=== PATIENT | male | born 1950 | race Caucasian/White ===

== ENCOUNTER → 2017-06-05 11:14 | Outpatient (CLI) | payer BC, SELFPAY ==
[2017-06-05 12:26] LABS: Absolute Lymphocyte Count 1.91 X10^3/ul (0.83-4.51); Absolute Neutrophil Count 4.7 X10^3/uL (2.0-7.7); Basophil# 0.06 X10^3/uL; Basophil% 0.8 % (0-1); Eosinophil# 0.36 X10^3/uL; Eosinophils% 4.8 % (0-5); Hematocrit 42.8 % (40-54); Hemoglobin 14.7 g/dl (13.0-16.5); Lymphocyte # 1.91 X10^3/ul (4.0); Lymphocyte % 25.6 % (19-41); Mean Corp Hgb Conc 34.3 g/gl (32-36); Mean Corpuscular Hgb 32.2 pg (27.0-32.0); Mean Corpuscular Volume 93.9 fL (80-94); Mean Platelet Vol. 10.1 fl (6.2-12.0); Monocyte# 0.46 X10^3/uL; Monocyte% 6.2 % (0-10); Neutrophil # 4.67 X10^3/uL (2.7-7.7); Neutrophil % 62.5 % (47-70); Platelet Count 123 K/mm3 (150-450); RBC Distribution Width SD 44.1 fl (35.1-43.9); Red Blood Count 4.56 M/mm3 (4.6-6.2); White Blood Count 7.5 K/mm3 (4.4-11.0)
[2017-06-05 12:41] LABS: POSITIVE COUNT NO; POSITIVE DIFFERENTIAL NO; POSITIVE MORPHOLOGY NO
[2017-06-05 12:48] LABS: Anion Gap 7 (5-15); BUN 15 mg/dL (7-18); Calcium,Total 8.7 mg/dL (8.5-10.1); Chloride 106 mmol/L (98-107); Creatinine, Serum 0.94 mg/dL (0.70-1.30); EST Glomerular Filtration Rate 86 mL/min (>60); Est Glom Filt Rate - Afr Amer 104 mL/min (>60); Glucose 92 mg/dL (74-106); Potassium 3.9 mmol/L (3.5-5.1); Sodium Level 139 mmol/L (136-145)
== END ==
PROVIDERS: Family Provider Family Medicine; PCP Family Medicine; Visit Provider Family Medicine
DX: Z01.818 Encounter for other preprocedural examination (principal); D69.6 Thrombocytopenia, unspecified; E61.1 Iron deficiency
CPT/HCPCS: 36415; 80048; 85025

== ENCOUNTER → 2017-11-14 07:10 | Outpatient (CLI) | payer BC, SELFPAY ==
[2017-11-14 08:42] LABS: Absolute Lymphocyte Count 1.64 X10^3/ul (0.83-4.51); Absolute Neutrophil Count 3.6 X10^3/uL (2.0-7.7); Basophil# 0.08 X10^3/uL; Basophil% 1.3 % (0-1); Eosinophil# 0.28 X10^3/uL; Eosinophils% 4.4 % (0-5); Hematocrit 45.4 % (40-54); Hemoglobin 15.5 g/dl (13.0-16.5); Lymphocyte # 1.64 X10^3/ul (4.0); Lymphocyte % 25.9 % (19-41); Mean Corp Hgb Conc 34.1 g/gl (32-36); Mean Corpuscular Hgb 31.7 pg (27.0-32.0); Mean Corpuscular Volume 92.8 fL (80-94); Mean Platelet Vol. 10.4 fl (6.2-12.0); Monocyte# 0.67 X10^3/uL; Monocyte% 10.6 % (0-10); Neutrophil # 3.64 X10^3/uL (2.7-7.7); Neutrophil % 57.6 % (47-70); Platelet Count 119 K/mm3 (150-450); RBC Distribution Width CV 13.5 % (11.6-14.6); RBC Distribution Width SD 44.6 fl (35.1-43.9); Red Blood Count 4.89 M/mm3 (4.6-6.2); White Blood Count 6.3 K/mm3 (4.4-11.0)
[2017-11-14 08:45] LABS: POSITIVE COUNT NO; POSITIVE DIFFERENTIAL NO; POSITIVE MORPHOLOGY NO
[2017-11-14 09:09] LABS: Ferritin 88 ng/mL (26-388); Iron 82 ug/dL (65-175)
== END ==
LOC: BFHLAB 07:12 → LAB 08:34
PROVIDERS: Family Provider Family Medicine; PCP Family Medicine; Visit Provider Family Medicine
DX: D69.6 Thrombocytopenia, unspecified (principal)
CPT/HCPCS: 36415; 82728; 83540; 85025

== ENCOUNTER → 2018-06-01 16:46 | Outpatient (CLI) | payer MEDICARE, OTHER, SELFPAY ==
[2018-06-01 18:04] LABS: ALB/GLOB Ratio 1.4 RATIO (0.9-2.4); AST(SGOT) 26 U/L (15-37); Alanine Aminotransfer ALT/SGPT 36 U/L (16-61); Albumin, Serum 4.2 g/dL (3.2-5.0); Alkaline Phosphatase 94 U/L (45-117); Anion Gap 9 (5-15); BUN 14 mg/dL (7-18); BUN/Creat Ratio 16.1 RATIO (10-20); Calcium,Total 8.8 mg/dL (8.5-10.1); Chloride 105 mmol/L (98-107); Creatinine, Serum 0.87 mg/dL (0.70-1.30); EST Glomerular Filtration Rate 93 mL/min (>60); Est Glom Filt Rate - Afr Amer 113 mL/min (>60); Globulin 2.9 g/dL (2.2-4.2); Glucose 98 mg/dL (74-106); Potassium 3.6 mmol/L (3.5-5.1); Protein, Total 7.1 g/dL (6.4-8.2); Sodium Level 138 mmol/L (136-145)
== END ==
PROVIDERS: Family Provider Family Medicine; PCP Family Medicine; Visit Provider Family Medicine
DX: Z79.899 Other long term (current) drug therapy (principal)
CPT/HCPCS: 36415; 80053

== ENCOUNTER 2019-12-07 16:50 | Emergency (ER) | payer MEDICARE, OTHER, SELFPAY ==
[2019-12-07 16:50] VITALS: BP 193/101; PULSE 75; RESP 16; TEMP 36.3; O2SAT 97; BMI 28.6
[2019-12-07 17:31] VITALS: BP 189/111
--- NOTE | 2019-12-07 17:52 | CT_ITS ---
STUDY: CT ABDOMEN AND PELVIS WITHOUT CONTRAST REASON FOR EXAM: Male, 69 years old. SUDDEN ONSET LUQ PAIN,ELEVATED WBC -- BILAT HIP REPLACEMENTS RADIATION DOSAGE (If Supplied By Facility): CTDIvol = ( 18.78 ) mGy, DLP = ( 1165.21 ) mGycm TECHNIQUE: Transaxial images were obtained from the dome of the diaphragm to the symphysis pubis without oral contrast, and without intravenous contrast. Sagittal and coronal images were reconstructed. Individualized dose optimization techniques were used for this CT. COMPARISON: None. FINDINGS: Minor atelectasis within the dependent portion of the lungs.. The heart is normal size. Is minor coronary artery calcification Normal liver. Normal gallbladder and extrahepatic biliary system. Normal spleen. Normal pancreas. Normal bilateral adrenal glands. Tiny nonobstructing right renal calculus. No evidence for renal mass.. 2 tiny nonobstructing left renal calculi. Mild left renal pelvocaliectasis and hydroureter secondary to tiny calculus in the proximal ureter measuring approximately 2 to 3 mm in size associated stranding in the perinephric fat Normal visualized stomach. Normal small intestine. Mild diverticular changes in the distal descending and sigmoid colon without evidence for acute diverticulitis. No evidence for acute appendicitis. Minor atherosclerotic changes of the aorta without evidence for aneurysm. Normal inferior vena cava. Normal retroperitoneum. Normal urinary bladder. Normal abdominal wall. Lumbar spine demonstrates degenerative change. Bilateral hip prostheses are noted CT/Abdomen/Pelvis W IV Cont ONLY IMPRESSION: Bilateral nephrolithiasis. Mild left hydroureteronephrosis secondary to tiny calculus in the proximal ureter measuring approximately 2 to 3 mm in size Mild diverticular disease of the descending and sigmoid colon without evidence for acute diverticulitis Electronically Signed: Hudson Rapp MD at 19:06 EDT , Service support ,
[2019-12-07] MEDS: Ondansetron 4 MG/2 ML Vial IV (18:10)
[2019-12-07] MEDS: Morphine 4 MG/ML Syringe IV (18:10)
[2019-12-07 18:22] LABS: Absolute Lymphocyte Count 1.57 X10^3/uL (0.83-4.51); Basophil# 0.06 X10^3/uL; Basophil% 0.5 % (0-1); Eosinophil# 0.25 X10^3/uL; Eosinophils% 2.1 % (0-5); Hematocrit 43.6 % (40-54); Hemoglobin 15.3 g/dL (13.0-16.5); Lymphocyte # 1.57 X10^3/ul (4.0); Lymphocyte % 13.3 % (19-41); Mean Corp Hgb Conc 35.1 g/dL (32-36); Mean Corpuscular Hgb 33.5 pg (27.0-32.0); Mean Corpuscular Volume 95.4 fL (80-94); Mean Platelet Vol. 9.6 fl (6.2-12.0); Monocyte# 0.96 X10^3/uL; Monocyte% 8.1 % (0-10); NRBC Flagged by Analyzer 0 % (0-5); Neutrophil # 8.95 X10^3/uL (2.7-7.7); Neutrophil % 75.7 % (47-70); Platelet Count 123 K/mm3 (150-450); RBC Distribution Width CV 12.5 % (11.6-14.6); RBC Distribution Width SD 43.4 fl (35.1-43.9); Red Blood Count 4.57 M/mm3 (4.6-6.2); White Blood Count 11.8 K/mm3 (4.4-11.0)
[2019-12-07 18:39] LABS: ALB/GLOB Ratio 1.3 RATIO (0.9-2.4); AST(SGOT) 23 U/L (15-37); Alanine Aminotransfer ALT/SGPT 37 U/L (16-61); Albumin, Serum 4.4 g/dL (3.2-5.0); Alkaline Phosphatase 95 U/L (45-117); Anion Gap 5 (5-15); BUN 26 mg/dL (7-18); BUN/Creat Ratio 18.1 RATIO (10-20); Calcium,Total 9.1 mg/dL (8.5-10.1); Chloride 104 mmol/L (98-107); Creatinine, Serum 1.44 mg/dL (0.70-1.30); EST Glomerular Filtration Rate 52 mL/min (>60); Est Glom Filt Rate - Afr Amer 63 mL/min (>60); Estimated Creatinine Clearance 46.54 ml/min; Globulin 3.4 g/dL (2.2-4.2); Glucose 100 mg/dL (74-106); Lipase 128 U/L (73-393); Potassium 4.1 mmol/L (3.5-5.1); Protein, Total 7.8 g/dL (6.4-8.2); Sodium Level 138 mmol/L (136-145)
[2019-12-07 19:17] LABS: Bacteria 0 SEEN /hpf (None Seen); Mucous, Urine 0 SEEN /hpf (<or=2+); Squamous Epithelial Cells - UA 0 SEEN /hpf (0-5); White Blood Cells 0 SEEN /hpf (0-5)
[2019-12-07 19:24] LABS: Color, Urine Yellow (Yellow); Glucose, Dipstick Normal (Normal); Ketone-Dipstick Negative (Negative); Leukocyte Esterase-Dipstick Negative /ul (Negative); Nitrite-Dipstick Negative (Negative); Occult Blood-Urine 50 /ul (Negative); Protein-Dipstick Negative (Negative); Specific Gravity, Urine 1.005 (1.002-1.030); Urine Bilirubin Dipstick Negative (Negative); Urine Clarity Clear (Clear); Urine Urobilinogen Normal (Normal)
[2019-12-07 19:30] LABS: Red Blood Cells-Urine 0-5 SEEN /hpf (0-5)
--- NOTE | 2019-12-07 19:55 | ED.VISSUMM ---
- ER Visit Summary Date of Service: 12/07/19 Chief Complaint: Abdominal pain History of Present Illness: The patient is a 69 M with left upper abdominal pain that started suddenly today. The pain was severe. Associated with nausea. History of diverticulitis. Physical Examination: Afebrile and vital signs unremarkable except for hypertension. He has no significant tenderness currently. Skin appears normal. Test Results: Labs and urine unremarkable/stable. White count 11.8 and platelets 123, BUN 26, creatinine 1.44. CT shows a 2 to 3 mm stone of the left proximal ureter. Emergency Department Course and Treatment: Patient treated with fluids, morphine, Zofran while awaiting results. I believe the pain is from ureteral colic. Patient may be discharged for outpatient follow-up. Referred to Dr. Knott. Pain meds, nausea meds, Flomax, strain urine. Treatment Plan: As above Disposition: As above Impression: Left ureteral colic This note was generated with [employer] dictation software. It may contain incorrect words, spelling, and punctuation that were not noted in review of the chart prior to signing ED Disposition - Plan for ED Patient: Referrals: Hair Mike MD [Primary Care Provider] -
--- NOTE | 2019-12-07 19:56 | ED.DEP ---
ED Disposition - Plan for ED Patient: Instructions: ED Renal Stone w Colic Prescriptions: Tamsulosin HCl [Flomax] 0.4 mg PO DAILY #7 cap Prescription Printed Oxycodone HCl/Acetaminophen [Percocet 5/325] 1 tab PO Q6H PRN PRN 3 Days #12 tab PRN Reason: Pain Prescription Printed Ondansetron [Zofran Odt] 4 mg PO Q8H PRN PRN #10 tab PRN Reason: Nausea Prescription Printed Referrals: Tu Knott MD [STAFF PHYSICIAN] -
[2019-12-07 20:14] VITALS: BP 159/81
== END 2019-12-07 20:24 | disposition home or self-care (01) ==
LOC: ED 18:09
PROVIDERS: Emergency Provider Emergency Medicine; PCP Family Medicine
DX: N23 Unspecified renal colic (principal)
CPT/HCPCS: 74177; 80053; 81001; 83690; 85025; 96361; 96374; 96375; 99282; J7040; Q9967; A4216; J2405

== ENCOUNTER → 2019-12-12 16:25 | Outpatient (CLI) | payer MEDICARE, OTHER, SELFPAY ==
[2019-12-07 16:50] VITALS: BMI 28.6
[2019-12-12 17:23] LABS: Anion Gap 6 (5-15); BUN 15 mg/dL (7-18); BUN/Creat Ratio 14.6 RATIO (10-20); Calcium,Total 8.9 mg/dL (8.5-10.1); Chloride 106 mmol/L (98-107); Creatinine, Serum 1.03 mg/dL (0.70-1.30); EST Glomerular Filtration Rate 77 mL/min (>60); Est Glom Filt Rate - Afr Amer 93 mL/min (>60); Glucose 106 mg/dL (74-106); Potassium 3.9 mmol/L (3.5-5.1); Sodium Level 139 mmol/L (136-145)
== END ==
PROVIDERS: PCP Family Medicine; Visit Provider Family Medicine
DX: N17.9 Acute kidney failure, unspecified (principal)
CPT/HCPCS: 36415; 80048

== ENCOUNTER 2020-06-14 17:39 | Outpatient (RCR) | payer MEDICARE, OTHER, SELFPAY ==
[2020-06-14] MEDS: COVID-19 VACC, MRNA(PFIZER)/PF 30 MCG/0.3 ML SYRINGE IM (17:56)
[2020-07-05] MEDS: COVID-19 VACC, MRNA(PFIZER)/PF 30 MCG/0.3 ML SYRINGE IM (17:16)
== END 2020-06-14 23:59 ==
LOC: IMMUN 17:39
PROVIDERS: PCP Family Medicine; Referring Provider Family Medicine; Visit Provider Family Medicine
DX: Z23 Encounter for immunization (principal)
CPT/HCPCS: 0001A; 0002A; 91300

== ENCOUNTER → 2021-01-19 06:59 | Outpatient (CLI) | payer MEDICARE, OTHER, SELFPAY ==
[2021-01-19 07:11] LABS: Bacteria 0 SEEN /hpf (None Seen); Mucous, Urine 0 SEEN /hpf (<or=2+); Red Blood Cells-Urine 0 SEEN /hpf (0-5); Squamous Epithelial Cells - UA 0 SEEN /hpf (0-5); White Blood Cells 0 SEEN /hpf (0-5)
[2021-01-19 07:35] LABS: Color, Urine Yellow (Yellow); Glucose, Dipstick Normal (Normal); Ketone-Dipstick Negative (Negative); Leukocyte Esterase-Dipstick Negative /ul (Negative); Nitrite-Dipstick Negative (Negative); Occult Blood-Urine Negative /ul (Negative); Protein-Dipstick Negative (Negative); Urine Bilirubin Dipstick Negative (Negative); Urine Clarity Sl. Cloudy (Clear); Urine Urobilinogen Normal (Normal)
[2021-01-19 07:36] LABS: Absolute Lymphocyte Count 1.55 X10^3/uL (0.83-4.51); Absolute Neutrophil Count 4.4 X10^3/uL (2.0-7.7); Basophil# 0.06 X10^3/uL; Basophil% 0.9 % (0-1); Eosinophil# 0.26 X10^3/uL; Eosinophils% 3.8 % (0-5); Hematocrit 45.5 % (40-54); Hemoglobin 15.7 g/dL (13.0-16.5); Lymphocyte # 1.55 X10^3/ul (0.83-4.51); Lymphocyte % 22.7 % (19-41); Mean Corp Hgb Conc 34.5 g/dL (32-36); Mean Corpuscular Hgb 32.6 pg (27.0-32.0); Mean Corpuscular Volume 94.4 fL (80-94); Mean Platelet Vol. 9.9 fl (6.2-12.0); Monocyte# 0.51 X10^3/uL; Monocyte% 7.5 % (0-10); NRBC Flagged by Analyzer 0 % (0-5); Neutrophil # 4.42 X10^3/uL (2.7-7.7); Neutrophil % 64.8 % (47-70); Platelet Count 126 K/mm3 (150-450); RBC Distribution Width CV 12.4 % (11.6-14.6); RBC Distribution Width SD 42.8 fl (35.1-43.9); Red Blood Count 4.82 M/mm3 (4.6-6.2); White Blood Count 6.8 K/mm3 (4.4-11.0)
[2021-01-19 07:56] LABS: Microalbumin,Random Urine 8.6 mg/L (NO RANGE EST.); Microalbumin:Creatinine Ratio 10.6 mg/g CRE (<30 mg/g CRE)
[2021-01-19 08:01] LABS: ALB/GLOB Ratio 1.2 RATIO (0.9-2.4); AST(SGOT) 22 U/L (15-37); Alanine Aminotransfer ALT/SGPT 35 U/L (16-61); Albumin, Serum 3.8 g/dL (3.2-5.0); Alkaline Phosphatase 91 U/L (45-117); Anion Gap 5 (5-15); BUN 20 mg/dL (7-18); BUN/Creat Ratio 22.5 RATIO (10-20); Calcium,Total 8.8 mg/dL (8.5-10.1); Chloride 108 mmol/L (98-107); Cholesterol 159 mg/dL (200); Creatinine, Serum 0.89 mg/dL (0.70-1.30); EST Glomerular Filtration Rate 90 mL/min (>60); Est Glom Filt Rate - Afr Amer 109 mL/min (>60); Ferritin 148 ng/mL (26-388); Globulin 3.2 g/dL (2.2-4.2); Glucose 97 mg/dL (74-106); High Density Lipoprotein 37 mg/dL; Iron 83 ug/dL (65-175); Iron Binding Capacity,Total 253 ug/dL (250-450); Potassium 4.1 mmol/L (3.5-5.1); Sodium Level 139 mmol/L (136-145); Triglycerides 105 mg/dL; Very Low Density Lipoprotein 21 mg/dL (5-40)
[2021-01-21 08:09] LABS: Vitamin D,25 Hydroxy 71.5 ng/mL
== END ==
PROVIDERS: PCP Internal Medicine; Referring Provider Internal Medicine; Visit Provider Internal Medicine
DX: D50.9 Iron deficiency anemia, unspecified (principal); E78.6 Lipoprotein deficiency; R03.0 Elevated blood-pressure reading, without diagnosis of hypertension; E55.9 Vitamin D deficiency, unspecified
CPT/HCPCS: 36415; 80053; 80061; 81001; 82043; 82306; 82570; 82728; 83540; 83550; 85025

== ENCOUNTER 2021-05-27 18:31 | Outpatient (CLI) | payer MEDICARE, OTHER, SELFPAY ==
--- NOTE | 2021-05-27 18:34 | CT_ITS ---
STUDY: CT RIGHT SHOULDER REASON FOR EXAM: Right glenohumeral osteoarthritis, surgical planning. TECHNIQUE: The patient was scanned in a multi detector CT scanner. High resolution transaxial imaging was performed without the administration of intravenous contrast material. Sagittal and coronal images were reconstructed. Individualized dose optimization techniques were used for this CT. COMPARISON: Radiographs 08/14/2016. FINDINGS: There is joint space narrowing of the anterior glenohumeral articulation (coronal reconstructions 33-35) and mild anterior subluxation of the glenohumeral articulation. Normal glenoid rim, neck and visualized scapula. Normal humeral head, neck and tuberosities. There is narrowing of the acromiohumeral distance (coronal reconstruction 30) measuring 0.4 cm suggestive of rotator cuff pathology. Normal visualized lateral clavicle. There is arthrosis of the acromioclavicular articulation (coronal reconstruction 36). There is a Type I morphology (flat undersurface), with a very mild posterior downsloping orientation. There is atrophy with partial fat replacement of the supraspinatus, infraspinatus and subscapularis muscles (coronal reconstruction 54). There is mild subpleural scarring in the right mid lung (axial images 216-218). CT/Extremity Upper without Contra IMPRESSION: Glenohumeral osteoarthritis. Electronically Signed: Gordy Armas MD at 15:01 EST ,
== END 2021-05-27 23:59 | disposition home or self-care (01) ==
LOC: CT 18:32
PROVIDERS: PCP Internal Medicine; Visit Provider Specialist
DX: M19.211 Secondary osteoarthritis, right shoulder (principal)
CPT/HCPCS: 73200

== ENCOUNTER 2021-07-16 07:23 | Outpatient (CLI) | payer MEDICARE, OTHER, SELFPAY ==
[2021-07-16 08:31] LABS: Hematocrit 39.2 % (40-54); Hemoglobin 13.4 g/dL (13.0-16.5); Mean Corp Hgb Conc 34.2 g/dL (32-36); Mean Corpuscular Hgb 32.8 pg (27.0-32.0); Mean Corpuscular Volume 96.1 fL (80-94); Mean Platelet Vol. 9.2 fl (6.2-12.0); Platelet Count 186 K/mm3 (150-450); RBC Distribution Width CV 12.3 % (11.6-14.6); RBC Distribution Width SD 44.1 fl (35.1-43.9); Red Blood Count 4.08 M/mm3 (4.6-6.2); White Blood Count 8.7 K/mm3 (4.4-11.0)
== END 2021-07-16 23:59 | disposition home or self-care (01) ==
LOC: LAB 07:25
PROVIDERS: PCP Internal Medicine; Referring Provider Physician Assistant Surgical; Visit Provider Physician Assistant Surgical
DX: I10 Essential (primary) hypertension (principal); D69.6 Thrombocytopenia, unspecified
CPT/HCPCS: 36415; 85027

== ENCOUNTER 2021-10-04 11:20 | Outpatient (RCR) | payer MEDICARE, OTHER, SELFPAY ==
[2021-09-26 17:55] LABS: Absolute Lymphocyte Count 2.03 X10^3/uL (0.83-4.51); Absolute Neutrophil Count 3.8 X10^3/uL (2.0-7.7); Basophil# 0.06 X10^3/uL; Basophil% 0.9 % (0-1); Eosinophil# 0.27 X10^3/uL; Hemoglobin 13.5 g/dL (13.0-16.5); Lymphocyte # 2.03 X10^3/ul (0.83-4.51); Lymphocyte % 29.9 % (19-41); Mean Corp Hgb Conc 33.8 g/dL (32-36); Mean Corpuscular Hgb 31.9 pg (27.0-32.0); Mean Corpuscular Volume 94.6 fL (80-94); Monocyte# 0.68 X10^3/uL; NRBC Flagged by Analyzer 0 % (0-5); Neutrophil # 3.75 X10^3/uL (2.7-7.7); Neutrophil % 55.1 % (47-70); Platelet Count 119 K/mm3 (150-450); RBC Distribution Width CV 12.7 % (11.6-14.6); RBC Distribution Width SD 44.1 fl (35.1-43.9); Red Blood Count 4.23 M/mm3 (4.6-6.2); White Blood Count 6.8 K/mm3 (4.4-11.0)
[2021-09-26 18:47] LABS: Differential Indicated SCAN CRITERIA MET; POSITIVE COUNT YES; POSITIVE DIFFERENTIAL NO; POSITIVE MORPHOLOGY NO
[2021-09-26 18:48] LABS: Anisocytosis RARE; Macrocytosis RARE; Platelet Estimate SLT DEC (ADEQ); Red Cell Morphology N CHROM NORMAL (NORM C&C)
[2021-10-04 12:36] LABS: Absolute Lymphocyte Count 1.64 X10^3/uL (0.83-4.51); Absolute Neutrophil Count 4.7 X10^3/uL (2.0-7.7); Basophil# 0.05 X10^3/uL; Basophil% 0.7 % (0-1); Eosinophil# 0.21 X10^3/uL; Hemoglobin 14.1 g/dL (13.0-16.5); Lymphocyte # 1.64 X10^3/ul (0.83-4.51); Lymphocyte % 23.1 % (19-41); Mean Corp Hgb Conc 34.4 g/dL (32-36); Mean Corpuscular Volume 93.2 fL (80-94); Mean Platelet Vol. 10.2 fl (6.2-12.0); Monocyte# 0.51 X10^3/uL; Monocyte% 7.2 % (0-10); NRBC Flagged by Analyzer 0 % (0-5); Neutrophil # 4.68 X10^3/uL (2.7-7.7); Neutrophil % 65.7 % (47-70); Platelet Count 121 K/mm3 (150-450); RBC Distribution Width CV 12.8 % (11.6-14.6); RBC Distribution Width SD 43.8 fl (35.1-43.9); White Blood Count 7.1 K/mm3 (4.4-11.0)
== END 2021-10-10 16:00 | disposition home or self-care (01) ==
LOC: MTLAB 11:20
PROVIDERS: PCP Internal Medicine; Referring Provider Internal Medicine; Visit Provider Internal Medicine
DX: D69.6 Thrombocytopenia, unspecified (principal)
CPT/HCPCS: 36415; 85025

== ENCOUNTER 2021-11-08 16:23 | Outpatient (RCR) | payer MEDICARE, OTHER, SELFPAY ==
[2021-10-11 17:49] LABS: Absolute Lymphocyte Count 1.76 X10^3/uL (0.83-4.51); Absolute Neutrophil Count 4.6 X10^3/uL (2.0-7.7); Basophil# 0.05 X10^3/uL; Basophil% 0.7 % (0-1); Eosinophil# 0.18 X10^3/uL; Eosinophils% 2.5 % (0-5); Hematocrit 43.5 % (40-54); Hemoglobin 14.6 g/dL (13.0-16.5); Lymphocyte # 1.76 X10^3/ul (0.83-4.51); Lymphocyte % 24.1 % (19-41); Mean Corp Hgb Conc 33.6 g/dL (32-36); Mean Corpuscular Hgb 31.9 pg (27.0-32.0); Mean Corpuscular Volume 95.2 fL (80-94); Mean Platelet Vol. 10.6 fl (6.2-12.0); Monocyte# 0.64 X10^3/uL; Monocyte% 8.8 % (0-10); NRBC Flagged by Analyzer 0 % (0-5); Neutrophil # 4.64 X10^3/uL (2.7-7.7); Neutrophil % 63.6 % (47-70); Platelet Count 124 K/mm3 (150-450); RBC Distribution Width SD 45.1 fl (35.1-43.9); Red Blood Count 4.57 M/mm3 (4.6-6.2); White Blood Count 7.3 K/mm3 (4.4-11.0)
[2021-10-18 17:42] LABS: Absolute Lymphocyte Count 1.72 X10^3/uL (0.83-4.51); Absolute Neutrophil Count 4.3 X10^3/uL (2.0-7.7); Basophil# 0.05 X10^3/uL; Basophil% 0.7 % (0-1); Eosinophils% 2.9 % (0-5); Hemoglobin 14.1 g/dL (13.0-16.5); Lymphocyte # 1.72 X10^3/ul (0.83-4.51); Lymphocyte % 24.8 % (19-41); Mean Corp Hgb Conc 33.6 g/dL (32-36); Mean Corpuscular Hgb 32.1 pg (27.0-32.0); Mean Corpuscular Volume 95.7 fL (80-94); Mean Platelet Vol. 10.5 fl (6.2-12.0); Monocyte# 0.64 X10^3/uL; Monocyte% 9.2 % (0-10); NRBC Flagged by Analyzer 0 % (0-5); Neutrophil # 4.29 X10^3/uL (2.7-7.7); Platelet Count 107 K/mm3 (150-450); RBC Distribution Width CV 13.1 % (11.6-14.6); RBC Distribution Width SD 46.7 fl (35.1-43.9); Red Blood Count 4.39 M/mm3 (4.6-6.2); White Blood Count 6.9 K/mm3 (4.4-11.0)
[2021-10-25 18:13] LABS: Absolute Neutrophil Count 4.5 X10^3/uL (2.0-7.7); Basophil# 0.05 X10^3/uL; Basophil% 0.7 % (0-1); Eosinophil# 0.24 X10^3/uL; Eosinophils% 3.2 % (0-5); Hemoglobin 14.1 g/dL (13.0-16.5); Lymphocyte % 26.6 % (19-41); Mean Corp Hgb Conc 33.6 g/dL (32-36); Mean Corpuscular Hgb 31.7 pg (27.0-32.0); Mean Corpuscular Volume 94.4 fL (80-94); Monocyte# 0.69 X10^3/uL; Monocyte% 9.2 % (0-10); NRBC Flagged by Analyzer 0 % (0-5); Neutrophil # 4.53 X10^3/uL (2.7-7.7); Platelet Count 118 K/mm3 (150-450); RBC Distribution Width SD 44.9 fl (35.1-43.9); Red Blood Count 4.45 M/mm3 (4.6-6.2); White Blood Count 7.5 K/mm3 (4.4-11.0)
[2021-11-01 17:59] LABS: Absolute Lymphocyte Count 2.01 X10^3/uL (0.83-4.51); Absolute Neutrophil Count 4.1 X10^3/uL (2.0-7.7); Basophil# 0.05 X10^3/uL; Basophil% 0.7 % (0-1); Eosinophil# 0.25 X10^3/uL; Eosinophils% 3.6 % (0-5); Hematocrit 42.3 % (40-54); Hemoglobin 14.2 g/dL (13.0-16.5); Lymphocyte # 2.01 X10^3/ul (0.83-4.51); Lymphocyte % 28.6 % (19-41); Mean Corp Hgb Conc 33.6 g/dL (32-36); Mean Corpuscular Hgb 32.1 pg (27.0-32.0); Mean Corpuscular Volume 95.5 fL (80-94); Mean Platelet Vol. 10.6 fl (6.2-12.0); Monocyte# 0.64 X10^3/uL; Monocyte% 9.1 % (0-10); NRBC Flagged by Analyzer 0 % (0-5); Neutrophil # 4.07 X10^3/uL (2.7-7.7); Neutrophil % 57.7 % (47-70); Platelet Count 117 K/mm3 (150-450); RBC Distribution Width CV 13.2 % (11.6-14.6); RBC Distribution Width SD 46.5 fl (35.1-43.9); Red Blood Count 4.43 M/mm3 (4.6-6.2)
[2021-11-08 18:14] LABS: Absolute Lymphocyte Count 1.84 X10^3/uL (0.83-4.51); Absolute Neutrophil Count 4.1 X10^3/uL (2.0-7.7); Basophil# 0.06 X10^3/uL; Basophil% 0.9 % (0-1); Eosinophil# 0.21 X10^3/uL; Eosinophils% 3.1 % (0-5); Hematocrit 41.6 % (40-54); Hemoglobin 14.5 g/dL (13.0-16.5); Lymphocyte # 1.84 X10^3/ul (0.83-4.51); Lymphocyte % 26.9 % (19-41); Mean Corp Hgb Conc 34.9 g/dL (32-36); Mean Corpuscular Hgb 32.8 pg (27.0-32.0); Mean Corpuscular Volume 94.1 fL (80-94); Mean Platelet Vol. 10.8 fl (6.2-12.0); Monocyte# 0.56 X10^3/uL; Monocyte% 8.2 % (0-10); NRBC Flagged by Analyzer 0 % (0-5); Neutrophil # 4.14 X10^3/uL (2.7-7.7); Neutrophil % 60.6 % (47-70); Platelet Count 112 K/mm3 (150-450); RBC Distribution Width CV 13.2 % (11.6-14.6); RBC Distribution Width SD 45.1 fl (35.1-43.9); Red Blood Count 4.42 M/mm3 (4.6-6.2); White Blood Count 6.8 K/mm3 (4.4-11.0)
== END 2021-11-10 03:33 | disposition home or self-care (01) ==
LOC: MTLAB 16:23
PROVIDERS: PCP Internal Medicine; Referring Provider Internal Medicine; Visit Provider Internal Medicine
DX: D59.6 Hemoglobinuria due to hemolysis from other external causes (principal)
CPT/HCPCS: 36415; 85025

== ENCOUNTER 2021-11-22 16:08 | Outpatient (RCR) | payer MEDICARE, OTHER, SELFPAY ==
[2021-11-15 17:37] LABS: Absolute Lymphocyte Count 2.04 X10^3/uL (0.83-4.51); Absolute Neutrophil Count 4.8 X10^3/uL (2.0-7.7); Basophil# 0.07 X10^3/uL; Basophil% 0.9 % (0-1); Eosinophil# 0.22 X10^3/uL; Eosinophils% 2.8 % (0-5); Hematocrit 41.9 % (40-54); Hemoglobin 14.8 g/dL (13.0-16.5); Lymphocyte # 2.04 X10^3/ul (0.83-4.51); Lymphocyte % 26.2 % (19-41); Mean Corp Hgb Conc 35.3 g/dL (32-36); Mean Corpuscular Hgb 32.9 pg (27.0-32.0); Mean Corpuscular Volume 93.1 fL (80-94); Monocyte# 0.66 X10^3/uL; Monocyte% 8.5 % (0-10); NRBC Flagged by Analyzer 0 % (0-5); Neutrophil # 4.77 X10^3/uL (2.7-7.7); Neutrophil % 61.3 % (47-70); Platelet Count 115 K/mm3 (150-450); RBC Distribution Width SD 44.1 fl (35.1-43.9); White Blood Count 7.8 K/mm3 (4.4-11.0)
[2021-11-22 17:42] LABS: Absolute Lymphocyte Count 1.85 X10^3/uL (0.83-4.51); Absolute Neutrophil Count 4.1 X10^3/uL (2.0-7.7); Basophil# 0.04 X10^3/uL; Basophil% 0.6 % (0-1); Eosinophil# 0.22 X10^3/uL; Eosinophils% 3.2 % (0-5); Hematocrit 42.2 % (40-54); Hemoglobin 14.1 g/dL (13.0-16.5); Lymphocyte # 1.85 X10^3/ul (0.83-4.51); Lymphocyte % 27.2 % (19-41); Mean Corp Hgb Conc 33.4 g/dL (32-36); Mean Corpuscular Hgb 31.8 pg (27.0-32.0); Mean Corpuscular Volume 95.3 fL (80-94); Mean Platelet Vol. 10.4 fl (6.2-12.0); Monocyte# 0.58 X10^3/uL; Monocyte% 8.5 % (0-10); NRBC Flagged by Analyzer 0 % (0-5); Neutrophil # 4.08 X10^3/uL (2.7-7.7); Neutrophil % 60.2 % (47-70); Platelet Count 108 K/mm3 (150-450); RBC Distribution Width SD 45.6 fl (35.1-43.9); Red Blood Count 4.43 M/mm3 (4.6-6.2); White Blood Count 6.8 K/mm3 (4.4-11.0)
== END 2021-11-22 18:00 | disposition home or self-care (01) ==
LOC: MTLAB 16:08
PROVIDERS: PCP Internal Medicine; Referring Provider Internal Medicine; Visit Provider Internal Medicine
DX: D69.6 Thrombocytopenia, unspecified (principal)
CPT/HCPCS: 36415; 85025

== ENCOUNTER 2022-02-04 06:32 | Outpatient (RCR) | payer MEDICARE, OTHER, SELFPAY ==
[2022-02-04 07:18] LABS: Absolute Lymphocyte Count 1.18 X10^3/uL (0.83-4.51); Basophil# 0.04 X10^3/uL; Basophil% 0.4 % (0-1); Eosinophils% 2.2 % (0-5); Hematocrit 46.3 % (40-54); Hemoglobin 16.1 g/dL (13.0-16.5); Lymphocyte # 1.18 X10^3/ul (0.83-4.51); Mean Corp Hgb Conc 34.8 g/dL (32-36); Mean Corpuscular Hgb 32.9 pg (27.0-32.0); Mean Corpuscular Volume 94.7 fL (80-94); Mean Platelet Vol. 9.8 fl (6.2-12.0); Monocyte# 0.67 X10^3/uL; Monocyte% 7.4 % (0-10); NRBC Flagged by Analyzer 0 % (0-5); Neutrophil # 6.99 X10^3/uL (2.7-7.7); Neutrophil % 76.8 % (47-70); Platelet Count 101 K/mm3 (150-450); RBC Distribution Width CV 12.5 % (11.6-14.6); RBC Distribution Width SD 43.7 fl (35.1-43.9); Red Blood Count 4.89 M/mm3 (4.6-6.2); White Blood Count 9.1 K/mm3 (4.4-11.0)
[2022-02-04 08:04] LABS: ALB/GLOB Ratio 1.3 RATIO (0.9-2.4); AST(SGOT) 19 U/L (15-37); Alanine Aminotransfer ALT/SGPT 34 U/L (16-61); Albumin, Serum 3.9 g/dL (3.2-5.0); Alkaline Phosphatase 93 U/L (45-117); Anion Gap 5 (5-15); BUN 14 mg/dL (7-18); BUN/Creat Ratio 17.2 RATIO (10-20); Calcium,Total 8.9 mg/dL (8.5-10.1); Chloride 105 mmol/L (98-107); Cholesterol 170 mg/dL (200); Creatinine, Serum 0.82 mg/dL (0.70-1.30); EST Glomerular Filtration Rate 100 mL/min (>60); Est Glom Filt Rate - Afr Amer 121 mL/min (>60); Globulin 3.1 g/dL (2.2-4.2); Glucose 95 mg/dL (74-106); High Density Lipoprotein 39 mg/dL; Potassium 4.1 mmol/L (3.5-5.1); Sodium Level 140 mmol/L (136-145); Triglycerides 98 mg/dL; Very Low Density Lipoprotein 20 mg/dL (5-40)
== END 2022-02-04 10:19 | disposition home or self-care (01) ==
LOC: LAB 06:32
PROVIDERS: PCP Internal Medicine; Referring Provider Internal Medicine; Visit Provider Internal Medicine
DX: D69.6 Thrombocytopenia, unspecified (principal); E78.6 Lipoprotein deficiency
CPT/HCPCS: 36415; 80053; 80061; 85025

== ENCOUNTER 2022-03-22 06:36 | Inpatient (IN) | payer MEDICARE, OTHER, SELFPAY ==
[2022-03-22] VITALS (8 sets, daily range): BP systolic 138–178; BP diastolic 75–103; PULSE 78–110; RESP 12–18; TEMP 36.6–37.1; O2SAT 93–98; BMI 26.6; BMI 25.5
--- NOTE | 2022-03-22 07:00 | EKG12_ITS ---
Test Reason : ABD PAIN Blood Pressure : / mmHG Vent. Rate : 070 BPM Atrial Rate : 070 BPM P-R Int : 134 ms QRS Dur : 102 ms QT Int : 378 ms P-R-T Axes : 037 024 023 degrees QTc Int : 408 ms Normal sinus rhythm Normal ECG Confirmed by CITLALY CHOW, ADALGISA ([id number]), editor news DARREL ESPINOZA ([id number]) on 03/25/2022 11:19:14 AM Referred By: Confirmed By:ADALGISA BOUCHER MD
--- NOTE | 2022-03-22 07:01 | ED.VIS.GI ---
HPI <Dr. Kwame Robles MD - Last Filed: 03/22/22 07:36> HPI - GI History of Present Illness Chief Complaint: Abd Pain Detail of Chief Complaint: Epigastric fullness. Informant: patient Abdominal Pain/Flank Pain Onset: Today, Yesterday and Hours Context: Gradual Onset Timing: Continuous Quality: Dull Current Severity: Mild Maximum Severity: Mild Worsened by: Nothing Relieved by: Nothing Nausea/Vomiting/Emesis GI Symptom: Positive for Nausea; Negative for Vomiting Onset: Today and Yesterday Severity: Mild Diarrhea/Melena/Hematochezia GI Symptom: Positive for Diarrhea; Negative for Melena or Hematochezia Onset: Yesterday Stool Quality: Positive for Loose Severity: Mild Associated Symptoms Associated Symptoms: Negative for Dysuria, Frequency, Hematuria or Urgency Narrative Narrative: 71-year-old male history of reflux and prior ITP. He is never had any abdominal surgeries. States that yesterday his last meal was at lunch. He just said he felt like his stomach was full. And that there was pressure. He said that is going on now for about 8 to 10 hours. He did not eat dinner because of it. He did take an omeprazole without any relief. He has had nausea without any vomiting. He had some loose stools. No fever. No weight changes. No melena. He denies any chest pain or shortness of breath. Prior similar symptoms: Yes Recent Illness/Hospitalization: No PFSH <Dr. Kwame Roblse MD - Last Filed: 03/22/22 07:36> [facility] Medical History GERD (gastroesophageal reflux disease) History of ITP Idiopathic thrombocytopenic purpura Home Medications omeprazole 20 mg capsule,delayed release 20 mg PO DAILY 02/05/14 [History Last Taken 02/05/14] iron, carbonyl 45 mg tablet (Feosol) 325 mg PO QWEEK 07/07/16 [History Last Taken Unknown] multivitamin (Multiple Vitamins tablet) 1 tab PO DAILY 07/07/16 [History Last Taken Unknown] ascorbic acid (vitamin C) 500 mg tablet (Vitamin C) 500 mg PO DAILY 08/14/16 [History Last Taken Unknown] cholecalciferol (vitamin D3) 50 mcg (2,000 unit) capsule (Vitamin D3) 2,000 unit PO DAILY 08/14/16 [History Last Taken Unknown] ondansetron 4 mg disintegrating tablet 4 mg PO Q8H PRN PRN Nausea #10 tabs 12/07/19 [Rx Last Taken Unknown] tamsulosin 0.4 mg capsule 0.4 mg PO DAILY #7 caps 12/07/19 [Rx Last Taken Unknown] losartan 50 mg tablet 50 mg PO DAILY 11/11/21 [History Last Taken Unknown] zinc gluconate 30 mg tablet 30 mg PO DAILY 11/11/21 [History Last Taken Unknown] Allergy/AdvReac Type Severity Reaction Status Date / Time prednisone Allergy Rash Verified 03/22/22 06:43 Family History Father Diabetes Mother Hypertension Surgical History History of hip surgery Hx of carpal tunnel repair Hx of foot surgery Hx of shoulder surgery Social History Smoking Status: Never smoker ROS <Dr. Kwame Robles MD - Last Filed: 03/22/22 07:36> ROS ED ROS Narrative Epigastric and abdominal fullness. Nausea. Diarrhea. Review of Systems ROS Unobtainable: Denies due to encephalopathy Constitutional Constitutional ED: Denies chills or fever(s) ENT ENT ED: Denies ear pain Cardiovascular Cardiovascular: Denies chest pain Respiratory/Chest Respiratory/Chest: Denies cough or dyspnea Gastrointestinal Gastrointestinal: Reports abdominal pain, diarrhea and nausea; Denies constipation, melena or vomiting Genitourinary Genitourinary ED: Denies dysuria or hematuria Musculoskeletal Musculoskeletal: Denies arthralgias Integumentary Denies abscess or Abrasions Neurologic Neurologic: Denies headache(s) Psychiatric Psychiatric: Denies anxiety Endocrine Endocrinology: Denies polydipsia Hematologic/Lymphatic Hematologic/Lymphatic: Denies easy bleeding Allergic/Immunologic Allergic/Immunologic ED: Denies mouth swelling or tongue swelling EXAM <Dr. Kwame Robles MD - Last Filed: 03/22/22 07:36> Physical Exam Narrative Exam Narrative: This is 11-year-old male no acute distress. Vital signs stable afebrile. He does not look septic toxic. He is no distress. H EENT exam unremarkable. Moist Riis members. Lungs clear to auscultation. Heart regular rhythm rate about 90 no murmur. Abdomen soft nondistended normal bowel sounds no peritoneal signs. Mild epigastric tenderness. No rebound, guarding or rigidity. No Culp's sign or McBurney's point tenderness. No hernia or masses or signs of obstruction. Patient moving all 4 extremities. Back nontender. Neurologic exam normal. Const Vital Signs: 03/22/22 06:37 03/22/22 06:40 03/22/22 06:40 Temperature 98.6 F 98.6 F Temperature Source Oral Oral Pulse Rate 90 88 Respiratory Rate 18 18 Blood Pressure 160/91 H 160/91 H Blood Pressure Mean 114 114 Pulse Ox 98 95 Oxygen Delivery Method Room Air Room Air 03/22/22 09:11 Temperature Temperature Source Pulse Rate 80 Respiratory Rate 12 Blood Pressure 147/75 H Blood Pressure Mean 99 Pulse Ox 97 Oxygen Delivery Method Room Air Positive well nourished and well developed; Negative for obese, cachectic, contractures or unkempt General Appearance ED: well developed and NAD; Negative for unkempt, cachectic, contractures or pallor Nutritional Appearance: Negative for cachectic or obese HEENT Reports moist mucous membranes; Denies dry mucous membranes normocephalic and atraumatic; Negative for trauma or tenderness Mouth ED: No dry mucous membranes Mouth: No dry mucous membranes Eyes PERRL and EOMs intact bilaterally General Eye ED: Negative for pale conjunctiva or scleral icterus Neck no lymphadenopathy, supple and no JVD General: Negative for tenderness Carotids: Negative for other Resp normal respiratory effort and clear to auscultation bilaterally Effort and Inspection: Negative for respiratory distress or retractions Auscultation: Negative for rales, rhonchi or wheezes Cardio regular rate, regular rhythm, S1 normal heart sound, S2 normal heart sound and no murmurs GI non-distended and no masses; Negative for non-tender GI Narrative: Mild epigastric tenderness. No rebound guarding rigidity. No obstruction. Inspection: Negative for abdominal distention Auscultation: normoactive bowel sounds Palpation: soft and tender Back/Spine no CVA tenderness General Back: Negative for CVA tenderness Cervical Spine: Negative for cervical spine tenderness Thoracic Spine / Upper Back: Negative for thoracic spinal tenderness Lumbar Spine / Lower Back: Negative for lumbar spinal tenderness Coccyx: Negative for other Extremity full ROM General Extremety ED: Negative for edema or tenderness General Extremity: Negative for edema Neuro CN's II-XII intact bilaterally and moves all extremities Sensorium / Orientation: alert, oriented to person, oriented to place and oriented to time; Negative for orientation impaired, confused, lethargic or stuporous Motor Exam: strength 5/5 throughout Psych mental status grossly normal and thought process normal Appearance: Negative for unkempt Attitude: No agitated Mood & Affect: Negative for depressed, anxious or tearful Skin no wounds General Skin Exam: Negative for jaundice or pallor Lesions: no lesions Rashes: no rashes Trauma: Negative for abrasion Nails: Negative for discolored <Dr. Will Dominique MD - Last Filed: 03/22/22 09:22> Physical Exam Const Vital Signs: 03/22/22 06:37 03/22/22 06:40 03/22/22 06:40 Temperature 98.6 F 98.6 F Temperature Source Oral Oral Pulse Rate 90 88 Respiratory Rate 18 18 Blood Pressure 160/91 H 160/91 H Blood Pressure Mean 114 114 Pulse Ox 98 95 Oxygen Delivery Method Room Air Room Air 03/22/22 09:11 Temperature Temperature Source Pulse Rate 80 Respiratory Rate 12 Blood Pressure 147/75 H Blood Pressure Mean 99 Pulse Ox 97 Oxygen Delivery Method Room Air MDM <Dr. Kwame Robles MD - Last Filed: 03/22/22 07:36> MDM MDM Narrative Medical decision making narrative: 71-year-old male with epigastric fullness. Clinically I think this is his reflux. Differential would include gastritis, reflux, pancreatitis, gallbladder disease etc. He will be treated with Zofran for nausea. Protonix for reflux along with GI cocktail. Screening labs can be obtained. At this time I do not think needs any imaging. He will be turned over to the morning physician who will follow up his labs and make final disposition. Lab Data Attestation: I reviewed the patient's lab results. Lab results narrative: CBC shows a white count 11.1. H&H is 16.9 and 50. Platelets are slightly low at 120,000 and he has a history of ITP. Patient be turned over to the morning physician to check his labs, EKG and re-evaluate the patient. Electrolytes unremarkable. Gap of 5. BUN 19 creatinine of 1. Glucose 148. Liver enzymes normal. Lipase normal. Labs: Laboratory Results - last 24 hr 03/22/22 03/22/22 06:53 06:53 WBC 11.1 H RBC 5.25 Hgb 16.9 H Hct 50.0 MCV 95.2 H MCH 32.2 H MCHC 33.8 RDW Std Deviation 44.5 H RDW Coeff of Yoel 12.6 Plt Count 120 L MPV 10.4 Immature Gran % (Auto) 0.400 Neut % (Auto) 86.7 H Lymph % (Auto) 8.9 L Wirt % (Auto) 3.6 Eos % (Auto) 0.2 Baso % (Auto) 0.2 Absolute Neuts (auto) 9.6 H Absolute Lymphs (auto) 0.99 Nucleated RBC % 0 Sodium 139 Potassium 4.0 Chloride 107 Carbon Dioxide 27.0 Anion Gap 5 BUN 19 H Creatinine 1.00 Estim Creat Clear Calc 69.72 Est GFR (MDRD) Af Amer 96 Est GFR (MDRD) Non-Af 79 BUN/Creatinine Ratio 19.1 Glucose 148 H Calcium 9.5 Total Bilirubin 0.80 AST 17 ALT 33 Alkaline Phosphatase 99 Total Protein 7.6 Albumin 4.1 Globulin 3.5 Albumin/Globulin Ratio 1.2 Lipase 95 <Dr. Will Dominique MD - Last Filed: 03/22/22 09:22> [facility] MDM Narrative Medical decision making narrative: 71-year-old male with epigastric fullness. Clinically I think this is his reflux. Differential would include gastritis, reflux, pancreatitis, gallbladder disease etc. He will be treated with Zofran for nausea. Protonix for reflux along with GI cocktail. Screening labs can be obtained. At this time I do not think needs any imaging. He will be turned over to the morning physician who will follow up his labs and make final disposition. Patient's EKG showed no acute process. CBC showed mild elevation of his white count and hemoglobin. Platelets were low but this is chronic for him. Electrolytes are overall normal. Kidney function is normal. Glucose was up at 148 but I do not think this is the cause of his symptoms. Liver function test and lipase showed no acute process. Patient was feeling a little bit better. We tried p.o. challenge but he vomited the water. I am getting him some more meds. We are going to do a scan of his abdomen. He does state that he feels very distended. Even though he has had no abdominal surgery in the past, I want a make sure there is no acute process, perforation obstruction etc. Lab Data Labs: Laboratory Results - last 24 hr 03/22/22 03/22/22 06:53 06:53 WBC 11.1 H RBC 5.25 Hgb 16.9 H Hct 50.0 MCV 95.2 H MCH 32.2 H MCHC 33.8 RDW Std Deviation 44.5 H RDW Coeff of Yoel 12.6 Plt Count 120 L MPV 10.4 Immature Gran % (Auto) 0.400 Neut % (Auto) 86.7 H Lymph % (Auto) 8.9 L Wirt % (Auto) 3.6 Eos % (Auto) 0.2 Baso % (Auto) 0.2 Absolute Neuts (auto) 9.6 H Absolute Lymphs (auto) 0.99 Nucleated RBC % 0 Sodium 139 Potassium 4.0 Chloride 107 Carbon Dioxide 27.0 Anion Gap 5 BUN 19 H Creatinine 1.00 Estim Creat Clear Calc 69.72 Est GFR (MDRD) Af Amer 96 Est GFR (MDRD) Non-Af 79 BUN/Creatinine Ratio 19.1 Glucose 148 H Calcium 9.5 Total Bilirubin 0.80 AST 17 ALT 33 Alkaline Phosphatase 99 Total Protein 7.6 Albumin 4.1 Globulin 3.5 Albumin/Globulin Ratio 1.2 Lipase 95 EKG Initial EKG: Comments: EKG done for epigastric pain read by me shows a normal sinus rhythm with overall rate of 70. No ectopy. No acute ST elevation depression consistent with infarct or ischemia. [place] interval, QRS duration and QTc normal. This is overall similar to 1 done from June 2013. Discharge Plan Triage Chief Complaint: Abd Pain ED Provider: Kwame Robles Dx/Rx/DC Orders Clinical Impression: Abdominal pain Prescriptions: No Action losartan 50 mg tablet 50 mg PO DAILY zinc gluconate 30 mg tablet 30 mg PO DAILY omeprazole 20 MG capsule 20 mg PO DAILY multivitamin [Multiple Vitamins] 1 EACH tablet 1 tab PO DAILY iron, carbonyl [Feosol] 45 MG capsule 325 mg PO QWEEK ascorbic acid (vitamin C) [Vitamin C] 500 MG tablet 500 mg PO DAILY cholecalciferol (vitamin D3) [Vitamin D3] 2,000 UNIT capsule 2,000 unit PO DAILY tamsulosin 0.4 MG capsule 0.4 mg PO DAILY Qty: 7 0RF ondansetron 4 MG tablet 4 mg PO Q8H PRN PRN (Reason: Nausea) Qty: 10 0RF Primary Care Provider: Korin Velázquez Referrals: Korin Velázquez DO [Primary Care Provider] -
[2022-03-22 07:10] LABS: Absolute Lymphocyte Count 0.99 X10^3/uL (0.83-4.51); Absolute Neutrophil Count 9.6 X10^3/uL (2.0-7.7); Basophil# 0.02 X10^3/uL; Basophil% 0.2 % (0-1); Eosinophil# 0.02 X10^3/uL; Eosinophils% 0.2 % (0-5); Hemoglobin 16.9 g/dL (13.0-16.5); Lymphocyte # 0.99 X10^3/ul (0.83-4.51); Lymphocyte % 8.9 % (19-41); Mean Corp Hgb Conc 33.8 g/dL (32-36); Mean Corpuscular Hgb 32.2 pg (27.0-32.0); Mean Corpuscular Volume 95.2 fL (80-94); Mean Platelet Vol. 10.4 fl (6.2-12.0); Monocyte% 3.6 % (0-10); NRBC Flagged by Analyzer 0 % (0-5); Neutrophil # 9.62 X10^3/uL (2.7-7.7); Neutrophil % 86.7 % (47-70); Platelet Count 120 K/mm3 (150-450); RBC Distribution Width CV 12.6 % (11.6-14.6); RBC Distribution Width SD 44.5 fl (35.1-43.9); Red Blood Count 5.25 M/mm3 (4.6-6.2); White Blood Count 11.1 K/mm3 (4.4-11.0)
[2022-03-22] MEDS: Ondansetron 4 MG/2 ML Vial IV (07:23)
[2022-03-22] MEDS: Pantoprazole Sodium 40 MG Tablet PO (07:23)
[2022-03-22 07:24] LABS: ALB/GLOB Ratio 1.2 RATIO (0.9-2.4); AST(SGOT) 17 U/L (15-37); Alanine Aminotransfer ALT/SGPT 33 U/L (16-61); Albumin, Serum 4.1 g/dL (3.2-5.0); Alkaline Phosphatase 99 U/L (45-117); Anion Gap 5 (5-15); BUN 19 mg/dL (7-18); BUN/Creat Ratio 19.1 RATIO (10-20); Calcium,Total 9.5 mg/dL (8.5-10.1); Chloride 107 mmol/L (98-107); EST Glomerular Filtration Rate 79 mL/min (>60); Est Glom Filt Rate - Afr Amer 96 mL/min (>60); Estimated Creatinine Clearance 69.72 ml/min; Globulin 3.5 g/dL (2.2-4.2); Glucose 148 mg/dL (74-106); Lipase 95 U/L (73-393); Protein, Total 7.6 g/dL (6.4-8.2); Sodium Level 139 mmol/L (136-145)
[2022-03-22] MEDS: Mag Hydrox/Al Hydrox/Simeth 30 ML UDC PO (07:24)
--- NOTE | 2022-03-22 09:18 | CT_ITS ---
HISTORY: pain, vomiting. TECHNIQUE: Helically acquired images were obtained of the abdomen and pelvis after the intravenous administration of 100mL Isovue-300. A radiation dose optimization technique was used for this scan. 436 images. COMPARISON: 12/07/2019. FINDINGS: LOWER CHEST: Lung bases clear. BOWEL: Multiple mildly dilated and fluid-filled small bowel loops and transition point in the left lower quadrant. Mild small bowel wall thickening proximal to the transition point. In the left lower quadrant Appendix nondilated. Colonic diverticulosis without focal inflammatory change observed. PERITONEUM: Trace free fluid in the pelvis. LIVER/SPLEEN/PANCREAS: No enhancing mass. Homogeneous and nonenlarged. GALLBLADDER/BILIARY TREE: Gallbladder present. KIDNEYS: Bilateral cysts measuring up to 1.4 cm on the left. 2-3 mm left renal calculi. No hydronephrosis. ADRENAL GLANDS: Unremarkable. VESSELS: No abdominal aortic aneurysm. Calcified plaque of the major branches of the abdominal aorta. PELVIC ORGANS: Unchanged appearance. ABDOMINAL WALL: Chronic left psoas muscle atrophy. BONES: Bilateral hip arthroplasties in place. Degenerative change. CT/Abdomen/Pelvis W IV Cont ONLY IMPRESSION: Small bowel obstruction with mildly dilated small bowel loops and transition point in the left lower quadrant. Mild small bowel wall thickening and trace ascites. Colonic diverticulosis without acute diverticulitis. Small nonobstructing right renal calculi. Small renal cysts. Electronically Signed: Tammie Ruiz MD at 9:58 EST ,
[2022-03-22] MEDS: proMETHazine 25 MG/ML Syringe 12.5 MG IM (09:23)
[2022-03-22] MEDS: Oxymetazoline 0.05% 1 SPRAY SPRAY.BTL 2 SPRAY NASAL (11:40)
[2022-03-22] MEDS: Lidocaine Jelly 2% 20 ML Syringe (URO-JET) 1 APPLIC TOPICAL (11:43)
--- NOTE | 2022-03-22 11:45 | RAD_ITS ---
HISTORY: NG tube placement -- KUB with both diaphragms for NG/OG Verification. TECHNIQUE: XR Abdomen 1 View. COMPARISON: CT earlier same day. FINDINGS: BOWEL GAS PATTERN: Nasogastric tube tip in the left upper quadrant. Multiple dilated small bowel loops again seen. FREE AIR: No gross free air seen on upright view. RAD/Abdomen Single View (Portable) IMPRESSION: Satisfactory appearance of nasogastric tube. Persistent small bowel obstruction. Electronically Signed: Tammie Ruiz MD at 12:06 EST ,
[2022-03-22] MEDS: Lactated Ringers 1,000 ML 125 ML IV ×2 (11:48→18:14)
--- NOTE | 2022-03-22 13:48 | HP.PCM.SX_ITS ---
HPI - General General Date of Admission: 03/22/22 Date of Service: 03/22/22 Chief Complaint: abdominal pain HPI Narrative WILDA SEGUNDO, is a 71 M who presents with abdominal pain. He states that this present episode began Thursday morning. He last noted a bowel movement this morning. He also had a bowel movement yesterday. He passed a small amount of flatus yesterday. He denies abdominal pain at present. He denies feeling bloated at this time. He denies fevers. His major complaint at this time is dry mouth. He has had similar episodes in the past, he states that he get this about once a year and this has been going on for about five years. These episodes would resolve within a day. No previous hospitalizations. He states that this last episode was more intense and thus presented to [place] [facility]. CT scan findings of small bowel obstruction with area of thickened small bowel wall. Patient denies antecedent symptoms of diarrhea/constipation/blood in stools He last had a colonoscopy in the past 1-2 years. He denies previous abdominal surgeries. He has had two hip surgeries, shoulder surgery and foot surgery. [facility] Medical History Diverticulitis GERD (gastroesophageal reflux disease) History of ITP Hypertension Idiopathic thrombocytopenic purpura Kidney stones Osteoarthritis Partial small bowel obstruction Home Medications omeprazole 20 mg capsule,delayed release 20 mg PO DAILY 02/05/14 [History Last Taken 02/05/14] iron, carbonyl 45 mg tablet (Feosol) 325 mg PO QWEEK 07/07/16 [History Last Taken Unknown] multivitamin (Multiple Vitamins tablet) 1 tab PO DAILY 07/07/16 [History Last Taken Unknown] ascorbic acid (vitamin C) 500 mg tablet (Vitamin C) 500 mg PO DAILY 08/14/16 [History Last Taken Unknown] cholecalciferol (vitamin D3) 50 mcg (2,000 unit) capsule (Vitamin D3) 2,000 unit PO DAILY 08/14/16 [History Last Taken Unknown] ondansetron 4 mg disintegrating tablet 4 mg PO Q8H PRN PRN Nausea #10 tabs 12/07/19 [Rx Last Taken Unknown] tamsulosin 0.4 mg capsule 0.4 mg PO DAILY #7 caps 12/07/19 [Rx Last Taken Unknown] losartan 50 mg tablet 50 mg PO DAILY 11/11/21 [History Last Taken Unknown] zinc gluconate 30 mg tablet 30 mg PO DAILY 11/11/21 [History Last Taken Unknown] Allergy/AdvReac Type Severity Reaction Status Date / Time prednisone Allergy Rash Verified 03/22/22 06:43 Family History Father Diabetes Mother Hypertension Surgical History History of hip surgery Hx of carpal tunnel repair Hx of foot surgery Hx of shoulder surgery Social History Smoking Status: Never smoker ROS Constitutional Constitutional: Denies chills, fever(s) or weight loss Eyes Eyes: Denies change in vision Cardiovascular Cardiovascular: Denies chest pain at rest Respiratory/Chest Respiratory/Chest: Denies dyspnea or shortness of breath at rest Gastrointestinal Gastrointestinal: Denies abdominal pain Genitourinary Genitourinary: Denies dysuria or hematuria Musculoskeletal Musculoskeletal: Denies abnormal gait Integumentary Integumentary: Denies jaundice Neurologic Neurologic: Denies dizziness or focal weakness Vital Signs Vital Signs Vital Signs: 03/22/22 06:37 03/22/22 06:40 03/22/22 06:40 Temperature 98.6 F 98.6 F Temperature Source Oral Oral Pulse Rate 90 88 Respiratory Rate 18 18 Blood Pressure 160/91 H 160/91 H Blood Pressure Mean 114 114 Blood Pressure Source Blood Pressure Position Blood Pressure Location Pulse Ox 98 95 Oxygen Delivery Method Room Air Room Air 03/22/22 09:11 03/22/22 11:53 03/22/22 12:15 Temperature 98 F 98.0 F Temperature Source Temporal Oral Pulse Rate 80 78 96 Respiratory Rate 12 16 16 Blood Pressure 147/75 H 138/78 H 176/101 H Blood Pressure Mean 99 98 126 Blood Pressure Source Monitor Blood Pressure Position Semi-Fowlers Blood Pressure Location Left Arm Pulse Ox 97 97 96 Oxygen Delivery Method Room Air Room Air Room Air Weight Weight: 78.6 kg Body Mass Index (BMI) 25.5 Physical Exam Const oriented x3 and no apparent distress Resp normal respiratory effort Cardio regular rate GI GI Narrative: abdomen is protuberant, non tender, benign Extremity no clubbing, cyanosis or edema Results Medical Records Data Attestation: I reviewed the patient's medical records Lab / Micro Data Attestation: I reviewed the patient's lab results. Result Diagrams: 03/22/22 06:53 03/22/22 06:53 Labs: Laboratory Results - last 24 hr 03/22/22 06:53: WBC 11.1 H, RBC 5.25, Hgb 16.9 H, Hct 50.0, MCV 95.2 H, MCH 32.2 H, MCHC 33.8, RDW Std Deviation 44.5 H, RDW Coeff of Yoel 12.6, Plt Count 120 L, MPV 10.4, Immature Gran % (Auto) 0.400, Neut % (Auto) 86.7 H, Lymph % (Auto) 8.9 L, [place] % (Auto) 3.6, Eos % (Auto) 0.2, Baso % (Auto) 0.2, Absolute Neuts (auto) 9.6 H, Absolute Lymphs (auto) 0.99, Nucleated RBC % 0 03/22/22 06:53: Sodium 139, Potassium 4.0, Chloride 107, Carbon Dioxide 27.0, Anion Gap 5, BUN 19 H, Creatinine 1.00, Estim Creat Clear Calc 69.72, Est GFR (MDRD) Af Amer 96, Est GFR (MDRD) Non-Af 79, BUN/Creatinine Ratio 19.1, Glucose 148 H, Calcium 9.5, Total Bilirubin 0.80, AST 17, ALT 33, Alkaline Phosphatase 99, Total Protein 7.6, Albumin 4.1, Globulin 3.5, Albumin/Globulin Ratio 1.2, Lipase 95 Radiology Impression Abdomen/Pelvis CT 03/22/22 09:18 IMPRESSION: Small bowel obstruction with mildly dilated small bowel loops and transition point in the left lower quadrant. Mild small bowel wall thickening and trace ascites. Colonic diverticulosis without acute diverticulitis. Small nonobstructing right renal calculi. Small renal cysts. Electronically Signed: Tammie Ruiz MD at 9:58 EST , KUB X-Ray 03/22/22 11:45 IMPRESSION: Satisfactory appearance of nasogastric tube. Persistent small bowel obstruction. Electronically Signed: Tammie Ruiz MD at 12:06 EST , Assessment & Plan Assessment/Plan (1) Partial small bowel obstruction: PLAN: see below PLAN: Plan will order CT scan with gastrogaffin contrast - can be placed via NG tube patient may have ice chips will need outpatient small bowel FT, if this episode resolved, to determine etiology of repeated pSBO No inflammatory bowel disease noted in family
--- NOTE | 2022-03-22 13:50 | CT_ITS ---
STUDY: CT Abdomen And Pelvis W/O Contrast Injection 03/22/2022 4:53 PM REASON FOR EXAM: Male, 71 years old. nausea/vomiting, hx hypertension. PAIN small bowel obstruction, localize -- localize TECHNIQUE: Transaxial images were obtained with oral contrast, and without Oral Gastrografin intravenous contrast. Individualized dose optimization techniques were used for this CT. COMPARISON: study done earlier. FINDINGS: The visualized lung bases are unremarkable. The visualized portions of the heart are within normal limits. Unremarkable liver. Unremarkable gallbladder and extrahepatic biliary system. Unremarkable spleen. Unremarkable pancreas. Unremarkable bilateral adrenal glands. No acute findings of the right kidney. No acute findings of the left kidney. Unremarkable visualized stomach. There are dilated loops of the small intestine with a non-distended colon consistent with a small bowel obstruction. There are multiple colonic diverticula consistent with diverticulosis. There is non-visualization of the appendix. Trace free fluid in the pelvis. There are calcifications of the abdominal aorta. This is consistent for atherosclerotic disease. There is no abdominal aortic aneurysm. Unremarkable inferior vena cava. Subcentimeter mesenteric lymph nodes. Unremarkable urinary bladder. Total bilateral hip arthroplasty. Unremarkable abdominal wall. There are diffuse degenerative changes of the visualized lumbar spine. CT/Abdomen/Pel W ORAL Cont Only IMPRESSION: (NOT LISTED IN ORDER OF SIGNIFICANCE) There is a small bowel obstruction. The transition point is not clearly seen. Trace free fluid in the pelvis. Other findings as above. Electronically Signed: Rick Reina MD at 16:59 EST ,
[2022-03-22] MEDS: hydrALAZINE 20 MG/ML Vial 5 MG IV (14:20)
[2022-03-22] MEDS: BENZOCAINE/MENTHOL 1 LOZENGE MUCOUS MEM (16:58)
--- NOTE | 2022-03-22 20:00 | RAD_ITS ---
EXAM: XR ABDOMEN, 2 VIEWS CLINICAL INDICATION: small bowel obstruction TECHNIQUE: Frontal view of the abdomen/pelvis with upright view of the abdomen. This report was created using [employer] report generation technology. COMPARISON: ct of the same day FINDINGS: LOWER THORAX: No acute pathology. INTRAPERITONEAL SPACE: No free air. GASTROINTESTINAL TRACT: There is a small bowel obstruction which appears worse. ORGANS: Unremarkable as visualized. No organomegaly. No abnormal calcifications. BONES/JOINTS: Degenerative findings in the lumbar spine. Total bilateral hip arthroplasty. SOFT TISSUES: No acute pathology. TUBES, LINES AND DEVICES: There is a feeding tube/ nasogastric tube noted. The tip is in the region of the stomach. RAD/Abd Inc Decub and/or Erect IMPRESSION: 1. There is a feeding tube/ nasogastric tube noted. The tip is in the region of the stomach. 2. There is a small bowel obstruction which appears worse. Electronically Signed: Rick Reina MD at 20:23 EST ,
[2022-03-23 01:45] VITALS: BP 156/85; PULSE 93; RESP 16; TEMP 36.8; O2SAT 94
[2022-03-23] MEDS: Lactated Ringers 1,000 ML 125 ML IV ×2 (01:51→09:57)
[2022-03-23 05:41] VITALS: BP 156/97; PULSE 90; RESP 18; TEMP 36.8; O2SAT 95
[2022-03-23 07:00] LABS: Anion Gap 5 (5-15); BUN 22 mg/dL (7-18); BUN/Creat Ratio 24.3 RATIO (10-20); Calcium,Total 8.5 mg/dL (8.5-10.1); Chloride 109 mmol/L (98-107); EST Glomerular Filtration Rate 88 mL/min (>60); Est Glom Filt Rate - Afr Amer 107 mL/min (>60); Estimated Creatinine Clearance 77.46 ml/min; Glucose 101 mg/dL (74-106); Potassium 3.7 mmol/L (3.5-5.1); Sodium Level 142 mmol/L (136-145)
[2022-03-23 09:05] VITALS: BP 163/99; PULSE 91; RESP 16; TEMP 36.8; O2SAT 96
--- NOTE | 2022-03-23 10:43 | PCM.PN.SRG ---
Subjective Subjective patient denies abdominal pain passing flatus doesn't really feel hungry Objective Data Objective Data Vital Signs: Vital Signs Temp Pulse Resp BP Pulse Ox O2 Del Method 98.3 F 91 16 163/99 H 96 Room Air 03/23/22 09:05 03/23/22 09:05 03/23/22 09:05 03/23/22 09:05 03/23/22 09:05 03/23/22 09:22 Oxygen Delivery Method Room Air Weight: 78.6 kg Body Mass Index (BMI) 25.5 Intake & Output: Intake and Output for Last 24 Hours 03/21/22 03/22/22 03/23/22 23:59 23:59 23:59 Intake Total 1327.17 / 1327.17 1962.08 / 1962.08 Output Total 1100 / 1100 600 / 600 Balance 227.17 / 227.17 1362.08 / 1362.08 Lab / Micro Data Result Diagrams: 03/22/22 06:53 03/23/22 05:35 Labs: Laboratory Results - last 24 hr 03/23/22 05:35: Sodium 142, Potassium 3.7, Chloride 109 H, Carbon Dioxide 28.0, Anion Gap 5, BUN 22 H, Creatinine 0.90, Estim Creat Clear Calc 77.46, Est GFR (MDRD) Af Amer 107, Est GFR (MDRD) Non-Af 88, BUN/Creatinine Ratio 24.3 H, Glucose 101, Calcium 8.5 Radiography Diagnostic Testing: Radiology Impression KUB X-Ray 03/22/22 11:45 IMPRESSION: Satisfactory appearance of nasogastric tube. Persistent small bowel obstruction. Electronically Signed: Tammie Ruiz MD at 12:06 EST , Abdomen CT 03/22/22 13:50 IMPRESSION: (NOT LISTED IN ORDER OF SIGNIFICANCE) There is a small bowel obstruction. The transition point is not clearly seen. Trace free fluid in the pelvis. Other findings as above. Electronically Signed: Rick Reina MD at 16:59 EST , Abdomen X-Ray 03/22/22 20:00 IMPRESSION: 1. There is a feeding tube/ nasogastric tube noted. The tip is in the region of the stomach. 2. There is a small bowel obstruction which appears worse. Electronically Signed: Rick Reina MD at 20:23 EST , Physical Exam Const alert and oriented x3 General Appearance: cooperative HEENT head/scalp atraumatic Eyes no scleral icterus Neck supple Resp normal respiratory effort Effort and Inspection: able to speak in complete sentences Cardio regular rate GI GI Narrative: abdomen is soft and protuberant and benign Assessment & Plan Assessment/Plan (1) Partial small bowel obstruction: PLAN: see below PLAN: Plan will trial clamp NG tube will start on clear liquids if tolerates above, will then d/c NG tube and patient can be discharged on clear liquid diet to advance slowly at home, patient is amenable to this he should be on a low residue diet/low fiber diet for a couple of weeks. He should follow up with me in the clinic for workup of etiology of SBO
[2022-03-23 13:33] VITALS: BP 149/85; PULSE 92; RESP 16; TEMP 36.9; O2SAT 94
--- NOTE | 2022-03-23 15:01 | DCINST_ITS ---
Discharge Instructions Follow Up Care Test Results: Test results from this visit will be discussed in further detail at your follow- up appointment, if applicable. Discharge Plan Admission Admit Date/Time: 03/22/22 11:16 Attending Provider: Hedy Sloan Primary Care Provider: Korni Velázquez Instructions Additional Instructions / Restrictions: Follow up with Dr. Sloan in 1-2 weeks Please call for an appointment, thank you Low residue/low fiber diet for at least two weeks Drink plenty of free water - at least 8-10 glasses per day Avoid carbonated and caffeinated beverages for a couple of weeks Discharge Orders/Prescriptions Prescriptions: No Action zinc gluconate 30 mg tablet 30 mg PO DAILY omeprazole 20 MG capsule 20 mg PO DAILY multivitamin [Multiple Vitamins] 1 EACH tablet 1 tab PO DAILY iron, carbonyl [Feosol] 45 MG capsule 325 mg PO WE ascorbic acid (vitamin C) [Vitamin C] 500 MG tablet 500 mg PO DAILY cholecalciferol (vitamin D3) [Vitamin D3] 2,000 UNIT capsule 2,000 unit PO DAILY Referrals / Follow Up: Korin Velázquez DO [Primary Care Provider] - Disposition Discharge Orders: Discharge Patient (Routine); Ordered 03/23/22 Ordered By: Dr. Hedy Sloan
== END 2022-03-23 15:13 | disposition home or self-care (01) | DRG 390 ==
LOC: ED 09:23 → PCU 11:47
PROVIDERS: Emergency Medicine; Admitting Provider Surgery; Emergency Provider Emergency Medicine; PCP Internal Medicine; Visit Provider Surgery
DX: K56.600 Partial intestinal obstruction, unspecified as to cause (principal); I10 Essential (primary) hypertension; K21.9 Gastro-esophageal reflux disease without esophagitis; Z87.19 Personal history of other diseases of the digestive system; Z86.19 Personal history of other infectious and parasitic diseases; Z87.442 Personal history of urinary calculi
CPT/HCPCS: 36415; 74018; 74019; 74176; 74177; 80048; 80053; 83690; 85025; 93005; 99285; J7120; Q9967; A4216; J2405

== ENCOUNTER → 2022-04-18 | Outpatient (CLI) | payer MEDICARE, OTHER, SELFPAY ==
--- NOTE | 2022-04-18 07:55 | RAD_ITS ---
CLINICAL HISTORY: Male, 71 years old. History of small bowel obstruction. PROCEDURE: Small bowel follow-through examination. FLUOROSCOPY TIME (if supplied): (54 seconds.) minutes/seconds. 19 images were obtained. TECHNIQUE: (All elements of maximal sterile barrier technique followed, including US elements as applicable) The patient ingested barium. The small bowel follow-through examination was performed. No evidence of a bowel obstruction. Contrast is seen within the right hemicolon at 30 minutes. Terminal ileum is unremarkable. Incidental note is made of a 1.6 cm diverticulum in the third portion of the duodenum. RAD/Small Bowel Series Only IMPRESSION: No evidence of bowel obstruction. 1.6 cm diverticulum in the third portion of the duodenum. Electronically Signed: Edison Trevizo MD at 13:10 EST ,
== END | disposition home or self-care (01) ==
LOC: RAD 07:43
PROVIDERS: PCP Internal Medicine; Visit Provider Surgery
DX: K56.609 Unspecified intestinal obstruction, unspecified as to partial versus complete obstruction (principal)
CPT/HCPCS: 74250

== ENCOUNTER → 2022-08-16 | Outpatient (CLI) | payer MEDICARE, OTHER, SELFPAY ==
[2022-08-16 07:25] LABS: Bacteria 0 SEEN /hpf (None Seen); Mucous, Urine 0 SEEN /hpf (<or=2+); Red Blood Cells-Urine 0 SEEN /hpf (0-5); Squamous Epithelial Cells - UA 0 SEEN /hpf (0-5); White Blood Cells 0 SEEN /hpf (0-5)
[2022-08-16 08:01] LABS: Absolute Lymphocyte Count 1.85 X10^3/uL (0.83-4.51); Absolute Neutrophil Count 5.4 X10^3/uL (2.0-7.7); Basophil# 0.05 X10^3/uL; Basophil% 0.6 % (0-1); Eosinophil# 0.24 X10^3/uL; Eosinophils% 2.9 % (0-5); Hematocrit 46.6 % (40-54); Lymphocyte # 1.85 X10^3/ul (0.83-4.51); Lymphocyte % 22.6 % (19-41); Mean Corp Hgb Conc 34.3 g/dL (32-36); Mean Corpuscular Hgb 32.2 pg (27.0-32.0); Mean Corpuscular Volume 93.8 fL (80-94); Mean Platelet Vol. 9.6 fl (6.2-12.0); Monocyte# 0.66 X10^3/uL; NRBC Flagged by Analyzer 0 % (0-5); Neutrophil # 5.38 X10^3/uL (2.7-7.7); Neutrophil % 65.7 % (47-70); POSITIVE COUNT YES; Platelet Count 97 K/mm3 (150-450); RBC Distribution Width CV 12.9 % (11.6-14.6); RBC Distribution Width SD 43.9 fl (35.1-43.9); Red Blood Count 4.97 M/mm3 (4.6-6.2); White Blood Count 8.2 K/mm3 (4.4-11.0)
[2022-08-16 08:03] LABS: Differential Indicated SCAN CRITERIA MET
[2022-08-16 08:24] LABS: Microalbumin,Random Urine 5.5 mg/L (NO RANGE EST.); Microalbumin:Creatinine Ratio 5.3 mg/g CRE (<30 mg/g CRE)
[2022-08-16 08:38] LABS: Color, Urine Yellow (Yellow); Glucose, Dipstick Normal (Normal); Ketone-Dipstick Negative (Negative); Leukocyte Esterase-Dipstick Negative /ul (Negative); Nitrite-Dipstick Negative (Negative); Occult Blood-Urine Negative /ul (Negative); Protein-Dipstick Negative (Negative); Specific Gravity, Urine 1.015 (1.002-1.030); Urine Bilirubin Dipstick Negative (Negative); Urine Clarity Clear (Clear); Urine Urobilinogen Normal (Normal)
[2022-08-16 08:45] LABS: ALB/GLOB Ratio 1.1 RATIO (0.9-2.4); AST(SGOT) 34 U/L (15-37); Alanine Aminotransfer ALT/SGPT 47 U/L (16-61); Albumin, Serum 3.7 g/dL (3.2-5.0); Alkaline Phosphatase 100 U/L (45-117); Anion Gap 6 (5-15); BUN 13 mg/dL (7-18); BUN/Creat Ratio 13.8 RATIO (10-20); Calcium,Total 9.1 mg/dL (8.5-10.1); Chloride 106 mmol/L (98-107); Cholesterol 162 mg/dL (200); Creatinine, Serum 0.94 mg/dL (0.70-1.30); EST Glomerular Filtration Rate 85 mL/min (>60); Est Glom Filt Rate - Afr Amer 102 mL/min (>60); Globulin 3.4 g/dL (2.2-4.2); Glucose 91 mg/dL (74-106); High Density Lipoprotein 30 mg/dL; Protein, Total 7.1 g/dL (6.4-8.2); Sodium Level 139 mmol/L (136-145); Thyroid Stim Hormone (TSH) 1.53 uIU/mL (0.358-3.74); Triglycerides 152 mg/dL; Very Low Density Lipoprotein 30 mg/dL (5-40)
[2022-08-16 08:46] LABS: Platelet Estimate SLT DEC (ADEQ)
[2022-08-18 08:23] LABS: Vitamin D,25 Hydroxy 120.1 ng/mL
== END | disposition home or self-care (01) ==
LOC: LAB 07:18
PROVIDERS: PCP Internal Medicine; Referring Provider Internal Medicine; Visit Provider Internal Medicine
DX: D69.6 Thrombocytopenia, unspecified (principal); I10 Essential (primary) hypertension; E55.9 Vitamin D deficiency, unspecified; Z12.5 Encounter for screening for malignant neoplasm of prostate
CPT/HCPCS: 36415; 80053; 80061; 81001; 82043; 82306; 82570; 84153; 84443; 85025; G0103

== ENCOUNTER 2022-11-08 10:54 | Inpatient (IN) | payer MEDICARE, OTHER, SELFPAY ==
[2022-11-08 10:55] VITALS: BP 135/84; PULSE 62; RESP 14; TEMP 36.4; O2SAT 98; BMI 27.3
--- NOTE | 2022-11-08 11:23 | CT_ITS ---
EXAM: CT ABDOMEN AND PELVIS WITH INTRAVENOUS CONTRAST CLINICAL INDICATION: pain AND BLOATING X 3 HOURS TECHNIQUE: Helically acquired images were obtained of the abdomen and pelvis with intravenous contrast. This CT exam was performed using one or more of the following dose reduction techniques: automated exposure control, adjustment of the mA and/or kV according to patient size, and/or use of iterative reconstruction technique. CONTRAST: Oral and amp; IV Gastrografin and amp; 100mL [id number] COMPARISON: CT Abdomen Pelvis dated 03/22/2022 FINDINGS: LOWER THORAX: Normal. Lung bases are clear. No cardiomegaly. No pericardial effusion. ABDOMEN: LIVER: Normal. Homogeneous. No focal mass. PANCREAS: Normal. No focal cystic or solid mass. SPLEEN: Normal. Normal size without focal cystic or solid mass. ADRENALS: Normal. No nodules. KIDNEYS AND URETERS: Nonobstructing small left renal stones. Subcentimeter bilateral renal cysts. Normal renal size and position. STOMACH AND BOWEL: Prominent distention of the stomach, duodenum and multiple small bowel loops are noted with transition to nondistended small bowel within the midabdomen. Pattern is consistent with small bowel obstruction which may be due to adhesions or internal hernia. Diverticulosis of the colon noted without evidence of acute diverticulitis. PELVIS: APPENDIX: Appendix is visualized and normal in appearance. BLADDER: Urinary bladder is not adequately visualized secondary to significant artifacts from the bilateral hip prostheses. REPRODUCTIVE: Unremarkable as visualized. No mass. ABDOMEN and PELVIS: INTRAPERITONEAL SPACE: Normal. No ascites or other fluid collection. No free air. BONES/JOINTS: See above. SOFT TISSUES: Normal. No discrete abdominal or pelvic wall hernia. VASCULATURE: Normal. Abdominal aorta is non-dilated. LYMPH NODES: Normal. No enlarged lymph nodes. CT/Abdomen/Pelvis WITH Contrast IMPRESSION: 1. Small bowel obstruction. 2. Left nephrolithiasis. 3. Diverticulosis coli. Electronically Signed: Juan J Muniz MD at 13:59 EDT ,
--- NOTE | 2022-11-08 11:25 | EX.ED.DYSGE1 ---
HPI History of Present Illness Chief Complaint: Abd Pain Informant: patient Onset/Context/Timing Onset: Today Context: Gradual Onset Current Severity: Mild Maximum Severity: Moderate Narrative Narrative: Patient presents with abdominal pain and concerned that he has another small bowel obstruction. Patient states several years ago he was diagnosed with a small bowel obstruction. He denies any prior abdominal surgeries and no specific cause was ever found. He states this morning he had a rather large bowel movement. An hour or 2 later he started getting upper abdominal pain and distention. He has not been able to pass gas or belch. He has had some chills. He has had nausea with one episode of vomiting. [facility] Medical History Bowel obstruction (~2021) Diverticulitis GERD (gastroesophageal reflux disease) History of ITP Hypertension Idiopathic thrombocytopenic purpura Kidney stones Osteoarthritis Partial small bowel obstruction Home Medications omeprazole 20 mg capsule,delayed release 20 mg PO DAILY 02/05/14 [History Last Taken 02/05/14] iron, carbonyl 45 mg tablet (Feosol) 325 mg PO WE anemia 07/07/16 [History Last Taken Unknown] multivitamin (Multiple Vitamins tablet) 1 tab PO DAILY 07/07/16 [History Last Taken Unknown] ascorbic acid (vitamin C) 500 mg tablet (Vitamin C) 500 mg PO DAILY 08/14/16 [History Last Taken Unknown] cholecalciferol (vitamin D3) 50 mcg (2,000 unit) capsule (Vitamin D3) 2,000 unit PO DAILY 08/14/16 [History Last Taken Unknown] zinc gluconate 30 mg tablet 30 mg PO DAILY supplement 11/11/21 [History Last Taken Unknown] Allergy/AdvReac Type Severity Reaction Status Date / Time prednisone Allergy Rash Verified 11/08/22 10:56 Family History Father Diabetes Mother Hypertension Surgical History History of hip surgery Hx of carpal tunnel repair Hx of foot surgery Hx of shoulder surgery Social History Smoking Status: Never smoker ROS ROS ED Constitutional Constitutional ED: Reports chills; Denies fever(s) Eyes Eyes: Denies change in vision or discharge from eye(s) ENT ENT ED: Denies discharge from eye(s), rhinorrhea or sore throat Cardiovascular Cardiovascular: Denies chest pain or palpitations Respiratory/Chest Respiratory/Chest: Denies cough or dyspnea Gastrointestinal Gastrointestinal: Reports abdominal pain, nausea and vomiting; Denies diarrhea Genitourinary Genitourinary ED: Denies dysuria Musculoskeletal Musculoskeletal: Denies back pain or extremity pain Integumentary Denies Abrasions or rash Neurologic Neurologic: Denies headache(s) or weakness Psychiatric Psychiatric: Denies anxiety or depression Allergic/Immunologic Allergic/Immunologic ED: Denies lip swelling or urticaria EXAM Physical Exam Const Vital Signs: 11/08/22 10:55 11/08/22 13:14 Temperature 97.6 F L Temperature Source Temporal Pulse Rate 62 69 Respiratory Rate 14 18 Blood Pressure 135/84 H 121/69 H Blood Pressure Mean 101 86 Pulse Ox 98 98 Oxygen Delivery Method Room Air Room Air Positive well nourished and well developed General Appearance ED: well developed HEENT Reports moist mucous membranes Eyes PERRL and EOMs intact bilaterally Neck no lymphadenopathy Chest Wall inspection of chest normal and palpation of chest normal Resp normal respiratory effort and clear to auscultation bilaterally Cardio regular rate and regular rhythm GI GI Narrative: Abdomen soft with slight distention. Very few if any bowel sounds noted. No guarding or rebound. Extremity normal to inspection Neuro oriented x3 and no sensory deficits noted Motor Exam: strength 5/5 throughout Psych mental status grossly normal Skin no rashes or lesions noted MDM MDM MDM Narrative Medical decision making narrative: Patient was given morphine, Zofran, IV fluids. Labwork obtained to evaluate for leukocytosis, anemia, and electrolyte derangement. Urinalysis obtained to evaluate for infection/hematuria. CT scan with abdomen and pelvis obtained to evaluate for possible bowel obstruction. History & Record Review Discussion w/independent historian: Patient and Significant other Additional record(s) reviewed:: Prior inpatient record, Prior ED visit and Prior labs Lab Data Attestation: I reviewed the patient's lab results. Labs: Laboratory Results - last 24 hr 11/08/22 11/08/22 11:30 12:38 WBC 14.0 H RBC 5.04 Hgb 16.6 H Hct 49.0 MCV 97.2 H MCH 32.9 H MCHC 33.9 RDW Std Deviation 45.6 H RDW Coeff of Yoel 12.8 Plt Count 110 L MPV 10.2 Immature Gran % (Auto) 0.400 Neut % (Auto) 88.4 H Lymph % (Auto) 5.1 L [place] % (Auto) 5.1 Eos % (Auto) 0.5 Baso % (Auto) 0.5 Absolute Neuts (auto) 12.4 H Absolute Lymphs (auto) 0.71 L Nucleated RBC % 0 Sodium 138 Potassium 4.1 Chloride 106 Carbon Dioxide 26.0 Anion Gap 6 BUN 17 Creatinine 1.07 Estim Creat Clear Calc 65.16 Est GFR (MDRD) Af Amer 88 Est GFR (MDRD) Non-Af 73 BUN/Creatinine Ratio 15.9 Glucose 118 H Calcium 9.9 Total Bilirubin 0.60 Direct Bilirubin 0.16 AST 24 ALT 33 Alkaline Phosphatase 110 Total Protein 8.1 Albumin 4.5 Globulin 3.6 Lipase 34 Urine Color Yellow Urine Clarity Sl. Cloudy Urine pH 5.0 Ur Specific [place] 1.025 Urine Protein 30 H Urine Glucose (UA) Normal Urine Ketones 5 H Urine Occult Blood Negative Urine Nitrite Negative Urine Bilirubin Negative Urine Urobilinogen Normal Ur Leukocyte Esterase Negative Urine RBC 0 SEEN Urine WBC 0 SEEN Ur Squamous Epith Cells 0-5 SEEN Urine Bacteria 0 SEEN Urine Mucus 0 SEEN Radiography Diagnostic Testing: Clinical Impression(s) from Imaging Studies Abdomen/Pelvis CT 11/08/22 11:23 IMPRESSION: 1. Small bowel obstruction. 2. Left nephrolithiasis. 3. Diverticulosis coli. Electronically Signed: Juan J Muniz MD at 13:59 EDT Reading Location ID and State: [address] [place] [address] Tel , Service support , Treatment and Re-Evaluation :: CBC reveals white count of 14,000 with 88% neutrophils. Chemistry studies largely unremarkable. LFTs and lipase normal. Urinalysis is normal. CT scan with contrast reveals a small bowel obstruction. There is a transition to nondistended small bowel in the mid abdomen. Radiologist felt this was consistent with obstruction due to adhesions or internal hernia. Patient has had no prior abdominal surgeries. He had another small bowel obstruction in March of last year. NG tube was placed at that time but no surgical procedure required. Patient did have a small bowel follow-through as an outpatient that he states he was told was unremarkable. NG tube be placed at this time. I will speak with the surgeon. Discharge Plan Triage Chief Complaint: Abd Pain ED Provider: Estefania Gaitan Dx/Rx/DC Orders Clinical Impression: Small bowel obstruction Prescriptions: No Action zinc gluconate 30 mg tablet 30 mg PO DAILY omeprazole 20 MG capsule 20 mg PO DAILY multivitamin [Multiple Vitamins] 1 EACH tablet 1 tab PO DAILY iron, carbonyl [Feosol] 45 MG capsule 325 mg PO WE ascorbic acid (vitamin C) [Vitamin C] 500 MG tablet 500 mg PO DAILY cholecalciferol (vitamin D3) [Vitamin D3] 2,000 UNIT capsule 2,000 unit PO DAILY Primary Care Provider: Korin Velázquez Referrals: Korin Velázquez DO [Primary Care Provider] - Disposition Disposition: Acute Care Hospital [facility]
[2022-11-08] MEDS: 0.9% Normal Saline 1,000 ML 150 ML IV (11:32)
[2022-11-08] MEDS: Ondansetron 4 MG/2 ML Vial IV (11:32)
[2022-11-08] MEDS: Morphine 4 MG/ML Syringe IV (11:32)
[2022-11-08 11:55] LABS: Absolute Lymphocyte Count 0.71 X10^3/uL (0.83-4.51); Absolute Neutrophil Count 12.4 X10^3/uL (2.0-7.7); Basophil# 0.07 X10^3/uL; Basophil% 0.5 % (0-1); Eosinophil# 0.07 X10^3/uL; Eosinophils% 0.5 % (0-5); Hemoglobin 16.6 g/dL (13.0-16.5); Lymphocyte # 0.71 X10^3/ul (0.83-4.51); Lymphocyte % 5.1 % (19-41); Mean Corp Hgb Conc 33.9 g/dL (32-36); Mean Corpuscular Hgb 32.9 pg (27.0-32.0); Mean Corpuscular Volume 97.2 fL (80-94); Mean Platelet Vol. 10.2 fl (6.2-12.0); Monocyte# 0.71 X10^3/uL; Monocyte% 5.1 % (0-10); NRBC Flagged by Analyzer 0 % (0-5); Neutrophil # 12.35 X10^3/uL (2.7-7.7); Neutrophil % 88.4 % (47-70); Platelet Count 110 K/mm3 (150-450); RBC Distribution Width CV 12.8 % (11.6-14.6); RBC Distribution Width SD 45.6 fl (35.1-43.9); Red Blood Count 5.04 M/mm3 (4.6-6.2)
[2022-11-08 12:09] LABS: AST(SGOT) 24 U/L (15-37); Alanine Aminotransfer ALT/SGPT 33 U/L (16-61); Albumin, Serum 4.5 g/dL (3.2-5.0); Alkaline Phosphatase 110 U/L (45-117); Anion Gap 6 (5-15); BUN 17 mg/dL (7-18); BUN/Creat Ratio 15.9 RATIO (10-20); Bilirubin, Direct 0.16 mg/dL (0.00-0.30); Calcium,Total 9.9 mg/dL (8.5-10.1); Chloride 106 mmol/L (98-107); Creatinine, Serum 1.07 mg/dL (0.70-1.30); EST Glomerular Filtration Rate 73 mL/min (>60); Est Glom Filt Rate - Afr Amer 88 mL/min (>60); Estimated Creatinine Clearance 65.16 ml/min; Globulin 3.6 g/dL (2.2-4.2); Glucose 118 mg/dL (74-106); Lipase 34 U/L (13-75); Potassium 4.1 mmol/L (3.5-5.1); Protein, Total 8.1 g/dL (6.4-8.2); Sodium Level 138 mmol/L (136-145)
[2022-11-08 12:50] LABS: Bacteria 0 SEEN /hpf (None Seen); Mucous, Urine 0 SEEN /hpf (<or=2+); Red Blood Cells-Urine 0 SEEN /hpf (0-5); White Blood Cells 0 SEEN /hpf (0-5)
[2022-11-08 12:53] LABS: Color, Urine Yellow (Yellow); Glucose, Dipstick Normal (Normal); Ketone-Dipstick 5 mg/dl (Negative); Leukocyte Esterase-Dipstick Negative /ul (Negative); Nitrite-Dipstick Negative (Negative); Occult Blood-Urine Negative /ul (Negative); Protein-Dipstick 30 mg/dl (Negative); Specific Gravity, Urine 1.025 (1.002-1.030); Urine Bilirubin Dipstick Negative (Negative); Urine Clarity Sl. Cloudy (Clear); Urine Urobilinogen Normal (Normal)
[2022-11-08 13:01] LABS: Squamous Epithelial Cells - UA 0-5 SEEN /hpf (0-5)
[2022-11-08 13:14] VITALS: BP 121/69; PULSE 69; RESP 18; O2SAT 98
--- NOTE | 2022-11-08 14:55 | PCM.HP.STD ---
HPI - General General Date of Admission: 11/08/22 Date of Service: 11/08/22 Chief Complaint: Abdominal pain HPI Narrative WILDA SEGUNDO, is a 71 M who presents abdominal pain. Patient past medical history is significant for similar presentation in March 2022. Was diagnosed with small bowel obstruction managed conservatively with resolution. Patient denies any previous abdominal surgery. Symptoms started on the morning of his admission. He did notice single abdominal pain and distention following a bout of bowel movement. He denied any nausea and vomiting. Given his previous experience he did present to the ED with concerns for possible small bowel obstruction. Imaging studies did show presence of small bowel obstruction. An NG tube was placed in the ED admitted to regular nursing floor after the surgeon on-call was notified. On further questioning patient denied any nausea no vomiting. [facility] Medical History Bowel obstruction (~2021) Diverticulitis GERD (gastroesophageal reflux disease) History of ITP Hypertension Idiopathic thrombocytopenic purpura Kidney stones Osteoarthritis Partial small bowel obstruction Home Medications omeprazole 20 mg capsule,delayed release 20 mg PO DAILY ACID REFLUX 02/05/14 [History Last Taken 02/05/14] iron, carbonyl 45 mg tablet (Feosol) 325 mg PO WE ANEMIA 07/07/16 [History Last Taken Unknown] multivitamin (Multiple Vitamins tablet) 1 tab PO DAILY HEALTH MAINTENANCE 07/07/16 [History Last Taken Unknown] ascorbic acid (vitamin C) 500 mg tablet (Vitamin C) 500 mg PO DAILY SUPPLEMENT 08/14/16 [History Last Taken Unknown] cholecalciferol (vitamin D3) 50 mcg (2,000 unit) capsule (Vitamin D3) 2,000 unit PO DAILY SUPPLEMENT 08/14/16 [History Last Taken Unknown] zinc gluconate 30 mg tablet 30 mg PO DAILY SUPPLEMENT 11/11/21 [History Last Taken Unknown] Allergy/AdvReac Type Severity Reaction Status Date / Time prednisone Allergy Rash Verified 11/08/22 10:56 Family History Father Diabetes Mother Hypertension Surgical History History of hip surgery Hx of carpal tunnel repair Hx of foot surgery Hx of shoulder surgery Social History Smoking Status: Never smoker ROS ROS Narrative GENERAL: denies fever, chills, night sweats, HEENT: denies headache, sinus congestion, RESPIRATORY: denies cough, sputum production, CARDIAC: denies chest pain, palpitations, orthopnea, PND GASTROINTESTINAL: abdominal pain,denies nausea, vomiting, GENITOURINARY: denies dysuria, urgency, frequency, heamaturia EXTREMITY: denies swelling MUSCULOSKELETAL: denies current joint pain or tenderness NEUROLOGIC: denies focal numbness, weakness, tingling HEMATOLOGIC: denies easy bruising and/or hemorrhage INTEGUMENT: denies rashes PSYCHIATRIC: denies suicidal or homicidal ideation Vital Signs Vital Signs Vital Signs: 11/08/22 10:55 11/08/22 13:14 Temperature 97.6 F L Temperature Source Temporal Pulse Rate 62 69 Respiratory Rate 14 18 Blood Pressure 135/84 H 121/69 H Blood Pressure Mean 101 86 Pulse Ox 98 98 Oxygen Delivery Method Room Air Room Air Weight Weight: 84.187 kg Body Mass Index (BMI) 27.3 Physical Exam Narrative GENERAL: cooperative HEENT: Atraumatic; normocephalic EYES; Anicteric, Normal Conjunctiva NECK; supple, normal thyroid, RESPIRATORY: Diminished to auscultation CARDIOVASCULAR: Regular S1 S2, GI: soft, normoactive bowel sounds, : No Renal angle tenderness; EXTREMITIES: No edema, no clubbing, MUSCULOSKELETAL: no muscle wasting NEURO: Awake; no lateralizing signs. SKIN: No Rash PSYCH; Flat affect Results Lab / Micro Data 11/08/22 11:30 11/08/22 11:30 Labs: Laboratory Results - last 24 hr 11/08/22 11:30: WBC 14.0 H, RBC 5.04, Hgb 16.6 H, Hct 49.0, MCV 97.2 H, MCH 32.9 H, MCHC 33.9, RDW Std Deviation 45.6 H, RDW Coeff of Yoel 12.8, Plt Count 110 L, MPV 10.2, Immature Gran % (Auto) 0.400, Neut % (Auto) 88.4 H, Lymph % (Auto) 5.1 L, [place] % (Auto) 5.1, Eos % (Auto) 0.5, Baso % (Auto) 0.5, Absolute Neuts (auto) 12.4 H, Absolute Lymphs (auto) 0.71 L, Nucleated RBC % 0, Sodium 138, Potassium 4.1, Chloride 106, Carbon Dioxide 26.0, Anion Gap 6, BUN 17, Creatinine 1.07, Estim Creat Clear Calc 65.16, Est GFR (MDRD) Af Amer 88, Est GFR (MDRD) Non-Af 73, BUN/Creatinine Ratio 15.9, Glucose 118 H, Calcium 9.9, Total Bilirubin 0.60, Direct Bilirubin 0.16, AST 24, ALT 33, Alkaline Phosphatase 110, Total Protein 8.1, Albumin 4.5, Globulin 3.6, Lipase 34 11/08/22 12:38: Urine Color Yellow, Urine Clarity Sl. Cloudy, Urine pH 5.0, Ur Specific [place] 1.025, Urine Protein 30 H, Urine Glucose (UA) Normal, Urine Ketones 5 H, Urine Occult Blood Negative, Urine Nitrite Negative, Urine Bilirubin Negative, Urine Urobilinogen Normal, Ur Leukocyte Esterase Negative, Urine RBC 0 SEEN, Urine WBC 0 SEEN, Ur Squamous Epith Cells 0-5 SEEN, Urine Bacteria 0 SEEN, Urine Mucus 0 SEEN Radiology Impression Abdomen/Pelvis CT 11/08/22 11:23 IMPRESSION: 1. Small bowel obstruction. 2. Left nephrolithiasis. 3. Diverticulosis coli. Electronically Signed: Juan J Muniz MD at 13:59 EDT , Assessment & Plan Assessment/Plan (1) Small bowel obstruction: PLAN: Plan Patient is a 71-year-old gentleman presenting with abdominal pain 1. Small bowel obstruction ? Patient has been admitted to regular nursing floor managed effectively with bowel rest, pain meds, antinausea medications and IV fluid with repeat imaging studies ordered for a.m. 2. GERD ? On PPI did continue 3. Previous history of small bowel obstruction ? Suspected to be secondary to bands patient has known previous history of intra-abdominal surgery 4. History of ITP ? Patient platelet count was 110 we will monitor 5. DVT prophylaxis ? Bilateral SCDs Time spent in the patient's overall evaluation,decision-making process, review of diagnostic data, adjustment of management, discussion with other providers, nursing nursing and ancillary staff involved in patient's care documentation,60 Minutes Charges/Coding Visit Charges Inpatient E&M: 50719 Init Hosp L2
--- NOTE | 2022-11-08 15:28 | RAD_ITS ---
EXAM: XR ABDOMEN, 1 VIEW CLINICAL INDICATION: NG Insertion TECHNIQUE: Frontal supine view of the abdomen/pelvis. COMPARISON: No relevant prior studies available. FINDINGS: GASTROINTESTINAL TRACT: Multiple dilated loops of small bowel consistent with obstruction. ORGANS: No organomegaly. BONES/JOINTS: No acute abnormality. TUBES, LINES AND DEVICES: Enteric tube extends into the stomach. RAD/Abdomen Single View (Portable) IMPRESSION: Small bowel obstruction. Satisfactory endogastric tube placement. Electronically Signed: Juan J Muniz MD at 15:49 EDT ,
[2022-11-08] MEDS: Oxymetazoline 0.05% 1 SPRAY SPRAY.BTL 2 SPRAY NASAL (15:39)
[2022-11-08 15:43] VITALS: BMI 26.8
[2022-11-08 15:44] VITALS: BP 121/69; PULSE 69; RESP 18; TEMP 36.4; O2SAT 98
[2022-11-08 16:00] VITALS: BP 168/99; PULSE 86; RESP 18; TEMP 36.7; O2SAT 96
[2022-11-08] MEDS: Dextrose 5%/0.9% NaCl 1,000 ML 150 ML IV ×2 (16:13→22:41)
[2022-11-08 16:50] VITALS: O2SAT 96
--- NOTE | 2022-11-08 20:35 | CON.PCM.SX_ITS ---
Assessment & Plan Assessment/Plan (1) Small bowel obstruction: PLAN: Plan Discussed with patient we will plan to treat conservatively with NG and IV fluids will likely plan to do contrast today with Gastrografin tomorrow once he has been decompressed. Did discuss with patient in the future even if he resolves during this hospitalization he may benefit from a laparoscopy has he has had at least 2 small bowel obstructions that required hospitalizations and he has never had any previous surgery. However 2 CTs and 1 small bowel follow- through not show any obvious cause of the obstructions as well. Discussed with patient and his had no further question this time. Olga Markham M.D. Pager: [phone] [facility] [address] [place] [address], [facility], [address] [place] [address] Office: [phone] HPI Consult Data Date of Consult: 11/09/22 HPI Narrative Reason for Consultation: Small bowel obstruction HPI Narrative: WILDA SEGUNDO, is a 71 M who presents to the ER due to abdominal pain not passing any flatus questioning possibly bowel obstruction as he previously had 1 in March 2022. Patient states prior to that he has had similar abdominal pain in but they have always resolved without hospitalization. In March patient CT abdomen pelvis that showed dilated small bowel patient did resolve with NG and follow-up small bowel follow-through in April 2021 was normal with contrast in the colon at 1 hour. Patient is never had any abdominal surgeries. Patient's colonoscopy was in early 2020 negative per patient. Patient stated this morning he was doing fine had breakfast and then after he has been at work started to have increasing abdominal pain nausea and new this was similar to previously and came to the ER. Patient also denies any family history of Crohn's disease or ulcerative colitis. Patient CT abdomen pelvis does show small bowel obstruction but there is not an obvious transition point that I am able to see. NG was placed in the ER and got out about a liter and half initially and has about another 500 cc in the canister. Patient still has some abdominal pain but is much improved. Patient denies any flatus since this morning, patient also had a normal bowel movement this morning prior to the pain beginning. [facility] Medical History Bowel obstruction (~2021) Diverticulitis GERD (gastroesophageal reflux disease) History of ITP Hypertension Idiopathic thrombocytopenic purpura Kidney stones Osteoarthritis Partial small bowel obstruction Home Medications omeprazole 20 mg capsule,delayed release 20 mg PO DAILY ACID REFLUX 02/05/14 [History Last Taken 02/05/14] iron, carbonyl 45 mg tablet (Feosol) 325 mg PO WE ANEMIA 07/07/16 [History Last Taken Unknown] multivitamin (Multiple Vitamins tablet) 1 tab PO DAILY HEALTH MAINTENANCE 07/07/16 [History Last Taken Unknown] ascorbic acid (vitamin C) 500 mg tablet (Vitamin C) 500 mg PO DAILY SUPPLEMENT 08/14/16 [History Last Taken Unknown] cholecalciferol (vitamin D3) 50 mcg (2,000 unit) capsule (Vitamin D3) 2,000 unit PO DAILY SUPPLEMENT 08/14/16 [History Last Taken Unknown] zinc gluconate 30 mg tablet 30 mg PO DAILY SUPPLEMENT 11/11/21 [History Last Taken Unknown] Allergy/AdvReac Type Severity Reaction Status Date / Time prednisone Allergy Rash Verified 11/08/22 10:56 Family History Father Diabetes Mother Hypertension Surgical History History of hip surgery Hx of carpal tunnel repair Hx of foot surgery Hx of shoulder surgery Social History Smoking Status: Never smoker ROS Eyes Eyes: Denies change in vision ENT HEENT: Denies dysphagia Cardiovascular Cardiovascular: Denies chest pain Respiratory/Chest Respiratory/Chest: Denies cough Gastrointestinal Gastrointestinal: Reports abdominal pain, bloating, constipation, nausea and vomiting; Denies hematemesis, hematochezia or melena Genitourinary Genitourinary: Denies dysuria Musculoskeletal Musculoskeletal: Denies joint swelling Integumentary Integumentary: Denies jaundice Neurologic Neurologic: Denies dizziness Psychiatric Psychiatric: Denies anxiety or depression Endocrine Endocrinology: Denies palpitations Hematologic/Lymphatic Hematologic/Lymphatic: Denies easy bleeding Physical Exam Narrative NG in place Const alert, oriented x3 and no apparent distress HEENT normocephalic and head/scalp atraumatic Resp normal respiratory effort Cardio regular rate GI soft to palpation; Negative for non-distended Palpation: tender epigastric (/Supraumbilical, no guarding or rebound); Negative for guarding Extremity no clubbing, cyanosis or edema Neuro CN's II-XII intact bilaterally Psych mental status grossly normal Lab / Micro Data 11/09/22 06:21 11/09/22 06:21 Labs: Laboratory Results - last 24 hr 11/08/22 11:30: WBC 14.0 H, RBC 5.04, Hgb 16.6 H, Hct 49.0, MCV 97.2 H, MCH 32.9 H, MCHC 33.9, RDW Std Deviation 45.6 H, RDW Coeff of Yoel 12.8, Plt Count 110 L, MPV 10.2, Immature Gran % (Auto) 0.400, Neut % (Auto) 88.4 H, Lymph % (Auto) 5.1 L, [place] % (Auto) 5.1, Eos % (Auto) 0.5, Baso % (Auto) 0.5, Absolute Neuts (auto) 12.4 H, Absolute Lymphs (auto) 0.71 L, Nucleated RBC % 0, Sodium 138, Potassium 4.1, Chloride 106, Carbon Dioxide 26.0, Anion Gap 6, BUN 17, Creatinine 1.07, Estim Creat Clear Calc 65.16, Est GFR (MDRD) Af Amer 88, Est GFR (MDRD) Non-Af 73, BUN/Creatinine Ratio 15.9, Glucose 118 H, Calcium 9.9, Total Bilirubin 0.60, Direct Bilirubin 0.16, AST 24, ALT 33, Alkaline Phosphatase 110, Total Protein 8.1, Albumin 4.5, Globulin 3.6, Lipase 34 11/08/22 12:38: Urine Color Yellow, Urine Clarity Sl. Cloudy, Urine pH 5.0, Ur Specific [place] 1.025, Urine Protein 30 H, Urine Glucose (UA) Normal, Urine Ketones 5 H, Urine Occult Blood Negative, Urine Nitrite Negative, Urine Bilirubin Negative, Urine Urobilinogen Normal, Ur Leukocyte Esterase Negative, Urine RBC 0 SEEN, Urine WBC 0 SEEN, Ur Squamous Epith Cells 0-5 SEEN, Urine Bacteria 0 SEEN, Urine Mucus 0 SEEN Radiology Impression Abdomen/Pelvis CT 11/08/22 11:23 IMPRESSION: 1. Small bowel obstruction. 2. Left nephrolithiasis. 3. Diverticulosis coli. Electronically Signed: Juan J Muniz MD at 13:59 EDT , KUB X-Ray 11/08/22 15:28 IMPRESSION: Small bowel obstruction. Satisfactory endogastric tube placement. Electronically Signed: Juan J Muniz MD at 15:49 EDT , Charges/Coding Visit Charges Inpatient E&M: 74015 Init Hosp L3
[2022-11-08] MEDS: BENZOCAINE/MENTHOL 1 LOZENGE MUCOUS MEM (20:51)
[2022-11-08 22:43] VITALS: BP 158/89; PULSE 84; RESP 16; TEMP 36.9; O2SAT 99
[2022-11-09] VITALS (7 sets, daily range): BP systolic 154–179; BP diastolic 91–98; PULSE 81–89; RESP 16–18; TEMP 36.3–37.1; O2SAT 94–98; BMI 26.9
[2022-11-09] MEDS: Dextrose 5%/0.9% NaCl 1,000 ML 150 ML IV ×3 (04:41→21:32)
--- NOTE | 2022-11-09 05:00 | RAD_ITS ---
INDICATION: Small bowel obstruction EXAMINATION/TECHNIQUE: X-RAY - XR Abdomen W/ Decub and/or Erect Views: Frontal flat and upright views of abdomen COMPARISON: CT abdomen and pelvis from one day prior FINDINGS: LINES: Enteric tube tip at mid stomach. BOWEL GAS PATTERN: Multiple dilated loops of bowel remain. Air-fluid levels demonstrated on upright view. Scattered gas within large bowel. FREE AIR: Suboptimal evaluation for free air secondary to exclusion of diaphragm on upright view. ORGANOMEGALY: Not seen. CALCIFICATIONS: Vascular calcifications noted. LOWER CHEST: Excluded from [id number]. BONES AND SOFT TISSUES: Skeletal degenerative changes. Bilateral hip arthroplasty hardware. RAD/Abd Inc Decub and/or Erect IMPRESSION: Persistent bowel obstruction Electronically Signed: Dagoberto Dobbins MD at 6:33 EDT ,
[2022-11-09 06:38] LABS: Absolute Lymphocyte Count 0.74 X10^3/uL (0.83-4.51); Absolute Neutrophil Count 5.7 X10^3/uL (2.0-7.7); Basophil# 0.04 X10^3/uL; Basophil% 0.5 % (0-1); Eosinophil# 0.03 X10^3/uL; Eosinophils% 0.4 % (0-5); Hematocrit 46.8 % (40-54); Hemoglobin 15.6 g/dL (13.0-16.5); Lymphocyte # 0.74 X10^3/ul (0.83-4.51); Mean Corp Hgb Conc 33.3 g/dL (32-36); Mean Corpuscular Hgb 32.8 pg (27.0-32.0); Mean Corpuscular Volume 98.5 fL (80-94); Mean Platelet Vol. 9.7 fl (6.2-12.0); Monocyte# 0.82 X10^3/uL; Monocyte% 11.1 % (0-10); NRBC Flagged by Analyzer 0 % (0-5); Neutrophil # 5.73 X10^3/uL (2.7-7.7); Neutrophil % 77.9 % (47-70); Platelet Count 108 K/mm3 (150-450); RBC Distribution Width CV 13.2 % (11.6-14.6); RBC Distribution Width SD 48.1 fl (35.1-43.9); Red Blood Count 4.75 M/mm3 (4.6-6.2); White Blood Count 7.4 K/mm3 (4.4-11.0)
[2022-11-09 07:00] LABS: Anion Gap 3 (5-15); BUN 14 mg/dL (7-18); Calcium,Total 8.2 mg/dL (8.5-10.1); Chloride 111 mmol/L (98-107); EST Glomerular Filtration Rate 79 mL/min (>60); Est Glom Filt Rate - Afr Amer 95 mL/min (>60); Estimated Creatinine Clearance 67.45 ml/min; Glucose 129 mg/dL (74-106); Magnesium 2.6 mg/dL (1.6-2.6); Phosphorus 3.1 mg/dL (2.5-4.9); Sodium Level 141 mmol/L (136-145)
[2022-11-09] MEDS: BENZOCAINE/MENTHOL 1 LOZENGE MUCOUS MEM (07:21)
--- NOTE | 2022-11-09 07:39 | PN.HOSP_ITS ---
Reason for Visit Reason for Visit: Diagnoses Unspecified intestinal obstruction, unspecified as to partial versus complete o bstruction (11/08/22) Subjective Subjective Patient is a 71-year-old gentleman admitted with abdominal pain imaging studies did demonstrate small bowel obstruction admitted to regular nursing floor. Conservative manage Objective Data Objective Data Vital Signs: Vital Signs Temp Pulse Resp BP Pulse Ox O2 Del Method 98.5 F 88 16 154/91 H 95 Room Air 11/09/22 04:34 11/09/22 04:34 11/09/22 04:34 11/09/22 04:34 11/09/22 04:34 11/09/22 04:34 Oxygen Delivery Method Room Air Weight: 80.4 kg Body Mass Index (BMI) 26.9 Intake & Output: Intake and Output for Last 24 Hours 11/07/22 11/08/22 11/09/22 23:59 23:59 23:59 Intake Total 2200 / 2310 1250 / 1250 Output Total 300 / 1050 1025 / 1025 Balance 1900 / 1260 225 / 225 Lab / Micro Data 11/09/22 06:21 11/09/22 06:21 Labs: Laboratory Results - last 24 hr 11/08/22 11:30: WBC 14.0 H, RBC 5.04, Hgb 16.6 H, Hct 49.0, MCV 97.2 H, MCH 32.9 H, MCHC 33.9, RDW Std Deviation 45.6 H, RDW Coeff of Yoel 12.8, Plt Count 110 L, MPV 10.2, Immature Gran % (Auto) 0.400, Neut % (Auto) 88.4 H, Lymph % (Auto) 5.1 L, [place] % (Auto) 5.1, Eos % (Auto) 0.5, Baso % (Auto) 0.5, Absolute Neuts (auto) 12.4 H, Absolute Lymphs (auto) 0.71 L, Nucleated RBC % 0, Sodium 138, Potassium 4.1, Chloride 106, Carbon Dioxide 26.0, Anion Gap 6, BUN 17, Creatinine 1.07, Estim Creat Clear Calc 65.16, Est GFR (MDRD) Af Amer 88, Est GFR (MDRD) Non-Af 73, BUN/Creatinine Ratio 15.9, Glucose 118 H, Calcium 9.9, Total Bilirubin 0.60, Direct Bilirubin 0.16, AST 24, ALT 33, Alkaline Phosphatase 110, Total Protein 8.1, Albumin 4.5, Globulin 3.6, Lipase 34 11/08/22 12:38: Urine Color Yellow, Urine Clarity Sl. Cloudy, Urine pH 5.0, Ur Specific [place] 1.025, Urine Protein 30 H, Urine Glucose (UA) Normal, Urine Ketones 5 H, Urine Occult Blood Negative, Urine Nitrite Negative, Urine Bilirubin Negative, Urine Urobilinogen Normal, Ur Leukocyte Esterase Negative, Urine RBC 0 SEEN, Urine WBC 0 SEEN, Ur Squamous Epith Cells 0-5 SEEN, Urine Bacteria 0 SEEN, Urine Mucus 0 SEEN 11/09/22 06:21: WBC 7.4, RBC 4.75, Hgb 15.6, Hct 46.8, MCV 98.5 H, MCH 32.8 H, MCHC 33.3, RDW Std Deviation 48.1 H, RDW Coeff of Yoel 13.2, Plt Count 108 L, MPV 9.7, Immature Gran % (Auto) 0.100, Neut % (Auto) 77.9 H, Lymph % (Auto) 10.0 L, [place] % (Auto) 11.1 H, Eos % (Auto) 0.4, Baso % (Auto) 0.5, Absolute Neuts (auto) 5.7, Absolute Lymphs (auto) 0.74 L, Nucleated RBC % 0, Sodium 141, Potassium 4.0, Chloride 111 H, Carbon Dioxide 27.0, Anion Gap 3 L, BUN 14, Creatinine 1.00, Estim Creat Clear Calc 67.45, Est GFR (MDRD) Af Amer 95, Est GFR (MDRD) Non-Af 79, BUN/Creatinine Ratio 14.0, Glucose 129 H, Calcium 8.2 L, Phosphorus 3.1, Magnesium 2.6 Radiography Diagnostic Testing: Radiology Impression Abdomen/Pelvis CT 11/08/22 11:23 IMPRESSION: 1. Small bowel obstruction. 2. Left nephrolithiasis. 3. Diverticulosis coli. Electronically Signed: Juan J Muniz MD at 13:59 EDT , KUB X-Ray 11/08/22 15:28 IMPRESSION: Small bowel obstruction. Satisfactory endogastric tube placement. Electronically Signed: Juan J Muniz MD at 15:49 EDT , Abdomen X-Ray 11/09/22 05:00 IMPRESSION: Persistent bowel obstruction Electronically Signed: Dagoberto Dobbins MD at 6:33 EDT , Physical Exam Narrative GENERAL: cooperative HEENT: Atraumatic; normocephalic EYES; Anicteric, Normal Conjunctiva NECK; supple, normal thyroid, RESPIRATORY: Diminished to auscultation CARDIOVASCULAR: Regular S1 S2, GI: soft, normoactive bowel sounds, : No Renal angle tenderness; EXTREMITIES: No edema, no clubbing, MUSCULOSKELETAL: no muscle wasting NEURO: Awake; no lateralizing signs. SKIN: No Rash PSYCH; Flat affect Assessment & Plan Assessment/Plan (1) Small bowel obstruction: PLAN: Plan Patient is a 71-year-old gentleman presenting with abdominal pain 1. Small bowel obstruction ? Patient has been admitted to regular nursing floor managed effectively with bowel rest, pain meds, antinausea medications and IV fluid with repeat imaging studies ordered for a.m. ? 11/10/2019 3 repeat imaging studies obtained this a.m. shows persistent small bowel obstruction. Patient was seen in consultation by general surgery plan is for patient to undergo subsequent evaluation with Gastrografin small bowel follow-through. 2. GERD ? On PPI did continue 3. Previous history of small bowel obstruction ? Suspected to be secondary to bands patient has known previous history of intra-abdominal surgery 4. History of ITP ? Patient platelet count was 110 we will monitor 5. DVT prophylaxis ? Bilateral SCDs Time spent in the patient's overall evaluation,decision-making process, review of diagnostic data, adjustment of management, discussion with other providers, nursing nursing and ancillary staff involved in patient's care documentation, 50 minutes Charges/Coding Visit Charges Inpatient E&M: 68916 [facility] Hosp L3
--- NOTE | 2022-11-09 08:41 | PN.SURG_ITS ---
Subjective Subjective Patient states abdomen feels a little better than even last night. NG put out about 300 overnight Objective Data Objective Data Vital Signs: Vital Signs Temp Pulse Resp BP Pulse Ox O2 Del Method 98.5 F 88 16 154/91 H 94 Room Air 11/09/22 04:34 11/09/22 04:34 11/09/22 04:34 11/09/22 04:34 11/09/22 07:14 11/09/22 07:14 Oxygen Delivery Method Room Air Weight: 177 lb 4.026 oz Body Mass Index (BMI) 26.9 Intake & Output: Intake and Output for Last 24 Hours 11/07/22 11/08/22 11/09/22 23:59 23:59 23:59 Intake Total 2200 / 2310 1250 / 1250 Output Total 300 / 1050 1025 / 1025 Balance 1900 / 1260 225 / 225 Lab / Micro Data 11/09/22 06:21 11/09/22 06:21 Labs: Laboratory Results - last 24 hr 11/08/22 11:30: WBC 14.0 H, RBC 5.04, Hgb 16.6 H, Hct 49.0, MCV 97.2 H, MCH 32.9 H, MCHC 33.9, RDW Std Deviation 45.6 H, RDW Coeff of Yoel 12.8, Plt Count 110 L, MPV 10.2, Immature Gran % (Auto) 0.400, Neut % (Auto) 88.4 H, Lymph % (Auto) 5.1 L, [place] % (Auto) 5.1, Eos % (Auto) 0.5, Baso % (Auto) 0.5, Absolute Neuts (auto) 12.4 H, Absolute Lymphs (auto) 0.71 L, Nucleated RBC % 0, Sodium 138, Potassium 4.1, Chloride 106, Carbon Dioxide 26.0, Anion Gap 6, BUN 17, Creatinine 1.07, Estim Creat Clear Calc 65.16, Est GFR (MDRD) Af Amer 88, Est GFR (MDRD) Non-Af 73, BUN/Creatinine Ratio 15.9, Glucose 118 H, Calcium 9.9, Total Bilirubin 0.60, Direct Bilirubin 0.16, AST 24, ALT 33, Alkaline Phosphatase 110, Total Protein 8.1, Albumin 4.5, Globulin 3.6, Lipase 34 11/08/22 12:38: Urine Color Yellow, Urine Clarity Sl. Cloudy, Urine pH 5.0, Ur Specific [place] 1.025, Urine Protein 30 H, Urine Glucose (UA) Normal, Urine Ketones 5 H, Urine Occult Blood Negative, Urine Nitrite Negative, Urine Bilirubin Negative, Urine Urobilinogen Normal, Ur Leukocyte Esterase Negative, Urine RBC 0 SEEN, Urine WBC 0 SEEN, Ur Squamous Epith Cells 0-5 SEEN, Urine Bacteria 0 SEEN, Urine Mucus 0 SEEN 11/09/22 06:21: WBC 7.4, RBC 4.75, Hgb 15.6, Hct 46.8, MCV 98.5 H, MCH 32.8 H, M CHC 33.3, RDW Std Deviation 48.1 H, RDW Coeff of Yoel 13.2, Plt Count 108 L, MPV 9.7, Immature Gran % (Auto) 0.100, Neut % (Auto) 77.9 H, Lymph % (Auto) 10.0 L, [place] % (Auto) 11.1 H, Eos % (Auto) 0.4, Baso % (Auto) 0.5, Absolute Neuts (auto) 5.7, Absolute Lymphs (auto) 0.74 L, Nucleated RBC % 0, Sodium 141, Potassium 4.0, Chloride 111 H, Carbon Dioxide 27.0, Anion Gap 3 L, BUN 14, Creatinine 1.00, Estim Creat Clear Calc 67.45, Est GFR (MDRD) Af Amer 95, Est GFR (MDRD) Non-Af 79, BUN/Creatinine Ratio 14.0, Glucose 129 H, Calcium 8.2 L, Phosphorus 3.1, Magnesium 2.6 Radiography Diagnostic Testing: Radiology Impression Abdomen/Pelvis CT 11/08/22 11:23 IMPRESSION: 1. Small bowel obstruction. 2. Left nephrolithiasis. 3. Diverticulosis coli. Electronically Signed: Juan J Muniz MD at 13:59 EDT , KUB X-Ray 11/08/22 15:28 IMPRESSION: Small bowel obstruction. Satisfactory endogastric tube placement. Electronically Signed: Juan J Muniz MD at 15:49 EDT , Abdomen X-Ray 11/09/22 05:00 IMPRESSION: Persistent bowel obstruction Electronically Signed: Dagoberto Dobbins MD at 6:33 EDT , Physical Exam Narrative NG in place Const alert, oriented x3 and no apparent distress HEENT normocephalic Resp normal respiratory effort Cardio regular rate GI soft to palpation; Negative for non-distended Palpation: tender epigastric (/Supraumbilical, no guarding or rebound--minimal); Negative for guarding Neuro CN's II-XII intact bilaterally Psych mental status grossly normal Assessment & Plan Assessment/Plan (1) Small bowel obstruction: PLAN: Plan Continue NG/IV fluids. We will do a modified small bowel follow-through with Gastrografin this morning. Olga Markham M.D. Pager: [phone] [facility] [address] [place] [address], [address] [place] [address] Office: [phone]
--- NOTE | 2022-11-09 08:43 | RAD_ITS ---
INDICATION: sbo -- gastrografin-modified- KUB 1hr/3hr EXAMINATION/TECHNIQUE: Multiple supine AP views of the abdomen and pelvis. COMPARISON: 11/09/2022 x-rays. FINDINGS: Initial images demonstrate contrast within the stomach and dilated loops of small bowel throughout the abdomen and pelvis. Subsequent images demonstrate contrast within dilated small bowel. Delayed images demonstrate contrast within the colon. RAD/Small Bowel Series Only IMPRESSION: Contrast seen within dilated loops of small bowel and within the colon. Findings are consistent with ileus versus partial small bowel obstruction. Electronically Signed: Hudson May DO at 5:54 EDT ,
--- NOTE | 2022-11-09 09:06 | NURSING ---
to x ray for procedure
--- NOTE | 2022-11-09 09:51 | NURSING ---
pt remains off unit in x-ray for testing
[2022-11-09] MEDS: 0.9% Saline Lock 10 ML Syringe IV (10:37)
[2022-11-09] MEDS: Ondansetron 4 MG/2 ML Vial IV (10:38)
--- NOTE | 2022-11-09 11:06 | NURSING ---
pt back on unit, has ambulated the hallway w/ and n/g remains clamped per order for gastro [id number] tolerating well-pt states he passed a very small amount of flatus while in x-ray dept-pt premedicated with zofran for slight nausea and remaining clamped at this time-pt up in chair at this time, at bedside and supportive
[2022-11-09] MEDS: hydrALAZINE 20 MG/ML Vial 10 MG IV (23:34)
[2022-11-10] VITALS (11 sets, daily range): BP systolic 135–169; BP diastolic 72–95; PULSE 77–95; RESP 16; TEMP 36.4–37.3; O2SAT 93–98; BMI 26.6
[2022-11-10 06:06] LABS: Absolute Lymphocyte Count 0.79 X10^3/uL (0.83-4.51); Absolute Neutrophil Count 4.2 X10^3/uL (2.0-7.7); Basophil# 0.01 X10^3/uL; Basophil% 0.2 % (0-1); Eosinophil# 0.06 X10^3/uL; Hematocrit 42.8 % (40-54); Hemoglobin 14.4 g/dL (13.0-16.5); Lymphocyte # 0.79 X10^3/ul (0.83-4.51); Lymphocyte % 13.7 % (19-41); Mean Corp Hgb Conc 33.6 g/dL (32-36); Mean Corpuscular Hgb 32.7 pg (27.0-32.0); Mean Corpuscular Volume 97.1 fL (80-94); Mean Platelet Vol. 9.8 fl (6.2-12.0); Monocyte# 0.73 X10^3/uL; Monocyte% 12.7 % (0-10); NRBC Flagged by Analyzer 0 % (0-5); Neutrophil # 4.15 X10^3/uL (2.7-7.7); Neutrophil % 72.2 % (47-70); POSITIVE COUNT YES; Platelet Count 99 K/mm3 (150-450); RBC Distribution Width CV 13.2 % (11.6-14.6); RBC Distribution Width SD 48.1 fl (35.1-43.9); Red Blood Count 4.41 M/mm3 (4.6-6.2); White Blood Count 5.8 K/mm3 (4.4-11.0)
[2022-11-10 06:27] LABS: Differential Indicated SCAN CRITERIA MET
--- NOTE | 2022-11-10 06:38 | PN.SURG_ITS ---
Subjective Subjective Patient did have multiple bowel movements due to the contrast, patient's KUB does show still some dilated small bowel loops little less than previous and contrast still in the right colon. Objective Data Objective Data Vital Signs: Vital Signs Temp Pulse Resp BP Pulse Ox O2 Del Method 97.7 F L 83 16 155/83 H 94 Room Air 11/10/22 04:14 11/10/22 04:14 11/10/22 04:14 11/10/22 04:14 11/10/22 04:14 11/10/22 04:14 Oxygen Delivery Method Room Air Weight: 177 lb 4.026 oz Body Mass Index (BMI) 26.9 Intake & Output: Intake and Output for Last 24 Hours 11/08/22 11/09/22 11/10/22 23:59 23:59 23:59 Intake Total 2200 / 2310 3693.0 / 3828.0 1305 / 1305 Output Total 300 / 1050 1350 / 1450 250 / 250 Balance 1900 / 1260 2343.0 / 2378.0 1055 / 1055 Lab / Micro Data 11/10/22 05:48 11/10/22 05:48 Labs: Laboratory Results - last 24 hr 11/09/22 06:21: WBC 7.4, RBC 4.75, Hgb 15.6, Hct 46.8, MCV 98.5 H, MCH 32.8 H, MCHC 33.3, RDW Std Deviation 48.1 H, RDW Coeff of Yoel 13.2, Plt Count 108 L, MPV 9.7, Immature Gran % (Auto) 0.100, Neut % (Auto) 77.9 H, Lymph % (Auto) 10.0 L, [place] % (Auto) 11.1 H, Eos % (Auto) 0.4, Baso % (Auto) 0.5, Absolute Neuts (auto) 5.7, Absolute Lymphs (auto) 0.74 L, Nucleated RBC % 0, Sodium 141, Potassium 4.0, Chloride 111 H, Carbon Dioxide 27.0, Anion Gap 3 L, BUN 14, Creatinine 1.00, Estim Creat Clear Calc 67.45, Est GFR (MDRD) Af Amer 95, Est GFR (MDRD) Non-Af 79, BUN/Creatinine Ratio 14.0, Glucose 129 H, Calcium 8.2 L, Phosphorus 3.1, Magnesium 2.6 11/10/22 05:48: WBC 5.8, RBC 4.41 L, Hgb 14.4, Hct 42.8, MCV 97.1 H, MCH 32.7 H, MCHC 33.6, RDW Std Deviation 48.1 H, RDW Coeff of Yoel 13.2, Plt Count 99 L, MPV 9.8, Immature Gran % (Auto) 0.200, Neut % (Auto) 72.2 H, Lymph % (Auto) 13.7 L, [place] % (Auto) 12.7 H, Eos % (Auto) 1.0, Baso % (Auto) 0.2, Absolute Neuts (auto) 4.2, Absolute Lymphs (auto) 0.79 L, Nucleated RBC % 0 Radiography Diagnostic Testing: Radiology Impression Small Bowel X-Ray 11/09/22 08:43 IMPRESSION: Contrast seen within dilated loops of small bowel and within the colon. Findings are consistent with ileus versus partial small bowel obstruction. Electronically Signed: Hudson May DO at 5:54 EDT , Physical Exam Narrative NG in place Const alert, oriented x3 and no apparent distress Resp normal respiratory effort Cardio regular rate GI soft to palpation; Negative for non-distended Palpation: tender epigastric (/Supraumbilical, no guarding or rebound--minimal); Negative for guarding Assessment & Plan Assessment/Plan (1) Small bowel obstruction: PLAN: Plan Did review patient's KUB from this morning and small bowel follow-through with patient and his . Discussed that the contrast on the colon however he still does have some dilated small bowels. Did offer him possible diagnostic laparoscopy but did not guarantee I would definitely find something or offered him to try clears see if he is able to tolerate. If patient is unable to tolerate then he would require surgery. Patient and his discussed this and would prefer to try the clears will initially start with NG still in but will plan to remove if he tolerates. Dr. Gutierrez will be following tomorrow if patient is still here--as I am not here tomorrow. Olga Markham M.D. Pager: [phone] [facility] [address] [place] [address], [address] [place] [address] Office: [phone]
[2022-11-10 06:44] LABS: Anion Gap 4 (5-15); BUN 11 mg/dL (7-18); BUN/Creat Ratio 14.9 RATIO (10-20); Calcium,Total 8.1 mg/dL (8.5-10.1); Chloride 114 mmol/L (98-107); Creatinine, Serum 0.74 mg/dL (0.70-1.30); EST Glomerular Filtration Rate 112 mL/min (>60); Est Glom Filt Rate - Afr Amer 135 mL/min (>60); Estimated Creatinine Clearance 67.45 ml/min; Glucose 119 mg/dL (74-106); Potassium 3.2 mmol/L (3.5-5.1); Sodium Level 143 mmol/L (136-145)
[2022-11-10 06:55] LABS: Platelet Estimate MOD DEC (ADEQ)
--- NOTE | 2022-11-10 08:14 | PN.HOSP_ITS ---
Reason for Visit Reason for Visit: Diagnoses Unspecified intestinal obstruction, unspecified as to partial versus complete o bstruction (11/08/22) Subjective Subjective Feeling better. Objective Data Objective Data Vital Signs: Vital Signs Temp Pulse Resp BP Pulse Ox O2 Del Method 36.5 C L 83 16 155/83 H 94 Room Air 11/10/22 04:14 11/10/22 04:14 11/10/22 04:14 11/10/22 04:14 11/10/22 04:14 11/10/22 04:14 Oxygen Delivery Method Room Air Weight: 80.4 kg Body Mass Index (BMI) 26.9 Intake & Output: Intake and Output for Last 24 Hours 11/08/22 11/09/22 11/10/22 23:59 23:59 23:59 Intake Total 2200 / 2310 3693.0 / 3828.0 1305 / 1305 Output Total 300 / 1050 1350 / 1450 250 / 250 Balance 1900 / 1260 2343.0 / 2378.0 1055 / 1055 Lab / Micro Data 11/10/22 05:48 11/10/22 05:48 Labs: Laboratory Results - last 24 hr 11/10/22 05:48: WBC 5.8, RBC 4.41 L, Hgb 14.4, Hct 42.8, MCV 97.1 H, MCH 32.7 H, MCHC 33.6, RDW Std Deviation 48.1 H, RDW Coeff of Yoel 13.2, Plt Count 99 L, MPV 9.8, Immature Gran % (Auto) 0.200, Neut % (Auto) 72.2 H, Lymph % (Auto) 13.7 L, [place] % (Auto) 12.7 H, Eos % (Auto) 1.0, Baso % (Auto) 0.2, Absolute Neuts (auto) 4.2, Absolute Lymphs (auto) 0.79 L, Nucleated RBC % 0, Platelet Estimate MOD DEC, Sodium 143, Potassium 3.2 L, Chloride 114 H, Carbon Dioxide 25.0, Anion Gap 4 L, BUN 11, Creatinine 0.74, Estim Creat Clear Calc 67.45, Est GFR (MDRD) Af Amer 135, Est GFR (MDRD) Non-Af 112, BUN/Creatinine Ratio 14.9, Glucose 119 H, Calcium 8.1 L Radiography Diagnostic Testing: Radiology Impression Small Bowel X-Ray 11/09/22 08:43 IMPRESSION: Contrast seen within dilated loops of small bowel and within the colon. Findings are consistent with ileus versus partial small bowel obstruction. Electronically Signed: Hudson MayDO at 5:54 EDT , Physical Exam Const alert and no apparent distress HEENT head/scalp atraumatic Resp normal respiratory effort, no retractions, no use of accessory muscles and clear to auscultation bilaterally Cardio regular rate, regular rhythm, S1 normal heart sound and S2 normal heart sound GI normal to inspection, nondistended, normoactive bowel sounds, soft to palpation, non-tender and non-distended Extremity normal to inspection Assessment & Plan Assessment/Plan (1) Small bowel obstruction: PLAN: Ileus v partial Small bowel obstruction SBFT showed contrast in colon: ileus v partial SBO General surgery following. Advanced to CLD by GS PLAN: Plan Chronic conditions: * GERD? On PPI did continue * Previous history of small bowel obstruction? Suspected to be secondary to bands patient has known previous history of intra-abdominal surgery * History of ITP DVT prophylaxis? Bilateral SCDs Charges/Coding Visit Charges Inpatient E&M: 12426 Subs Hosp L2
[2022-11-10] MEDS: 0.9% Saline Lock 10 ML Syringe IV ×2 (09:23→22:57)
--- NOTE | 2022-11-10 13:45 | CASEMGMT ---
Social Work SW let pt and know that LW/POA papers are not on file, asked to bring them in as able. GURJIT Bryant
[2022-11-10] MEDS: Lactated Ringers 1,000 ML 15 ML IV (14:39)
--- NOTE | 2022-11-10 15:43 | CASEMGMT ---
RN?CM?CURTAIN FITTER?CM?to room to meet with patient for initial transition planning/care coordination?assessment.?RN?CM?introduced self and role at [facility].? Pt voices understanding and consents to?assessment?at this time.? Pt sitting on edge of bed in no distress at this time.? @ bedside. Pt is A/O at this time and answers all questions appropriately.?? Care providers, pharmacy, and demographics verified/updated at this time. PCP: Dr Velázquez Specialists: Dr Florez-podiatry [facility] Prescription Benefit:?Yes Living Will/HPOA:? Has both LW and HCPOA, who is his , Constanza LNOK: , Constanza Living Arrangements: Lives w/his in ranch-style home w/4-5 steps to enter. Denies difficulty w/stairs. Indep w/ADL's and IADL's. Transportation:?Pt states drives self and states no transportation concerns at this time.? also drives. DME: ? Denies using any DME and denies needs.? HHC/SNF: No hx of SNF. Has had HHC in the past. Denies need for HHC and no needs identified. Pt wishes to return home and states has no concerns with going home at time of discharge.? CM?to follow for any discharge planning/needs.? Pt and voice no concerns/needs at this time.? Advised them to ask for?CM?if any questions/concerns/needs arise.? They voice understanding. PLAN:??Home Gabriela BSN?RN?CM
[2022-11-10] MEDS: Cefazolin 2 GM in 0.9% Normal Saline 100 ML IV (15:44)
[2022-11-10] MEDS: Lidocaine 1%/Epi 1:100 (30ml) 30 ML VIAL (16:45)
--- NOTE | 2022-11-10 16:48 | OP.PCM_ITS ---
Report of Operation Date of Procedure: 11/10/22 Pre-Operative Diagnosis: Small bowel obstruction Post-Operative Diagnosis: Normal-appearing small bowel Surgery/Procedure Performed:: Diagnostic laparoscopy converted to laparotomy Surgeon: Olga Markham transverse abdominal muscle nurse: Lashon Coffey Type of Anesthesia: General/Supplemental Anesthesiologist: Austyn Riggs Special Medications: Ancef 2 g IV x1 Specimen's removed: None Estimated Blood Loss (mL): <10 cc Description of Procedure: Indications: 71-year-old male no previous history of abdominal surgeries presented with small bowel obstruction?second within 7 months. Patient had a CAT scan as well as an NG for decompression and small bowel follow-through which contrast was still in the stomach at 8 hours along with dilated small bowel but the contrast did make it to the colon at 8 hours as well. By the morning patient still had dilated small bowel was given a p.o. clears trial which patient stated he felt nauseous and bloated. Description of procedure: Patient was brought to the operating placed spinal operating table. Timeout was completed verifying correct patient, procedure, site, special equipment prior to beginning procedure. Abdomen was prepped and draped in usual sterile fashion. Supraumbilical incision was made with a 15 blade scalpel. Fascia was elevated in size and draped visualization. Entry into the abdomen was confirmed visually with no injury upon entry. Parrish trocar was placed. Abdomen was insufflated with 12 to 15 mmHg. Dilated small bowel was seen along with decompressed small bowel distally. Additional 5 mm trocars were placed infraumbilically and left upper quadrant under direct visualization. Atraumatic graspers were used to run the small bowel from the cecum/terminal ileum to the dilated small bowel. There is no obvious lesion in this area or adhesion. However it did not seem like the small bowel contents would easily went to the decompressed bowel. Thus it was converted to laparotomy at the supraumbilical site with electrocautery. Wound protector was placed. The transition area was brought into the wound and the small bowel was ran no lesions were detected in the small bowel and small bowel contents were able to be milked distally. Incision was closed with 1 PDS the supraumbilical site. skin was closed with 4-0 Monocryl suture. Steri-Strips and OpSite were placed. Complications none
[2022-11-10] MEDS: Lactated Ringers 1,000 ML 100 ML IV (18:26)
[2022-11-10 18:34] LABS: Magnesium 2.3 mg/dL (1.6-2.6)
[2022-11-10] MEDS: Potassium Chloride 10mEq/100mL 10 MEQ/100 ML IV.SOLN. 100 MEQ IV BOLUS ×5 (18:58→23:28)
[2022-11-10] MEDS: Acetaminophen 325 MG Tablet 650 MG PO (19:03)
[2022-11-10] MEDS: BENZOCAINE/MENTHOL 1 LOZENGE MUCOUS MEM (20:52)
[2022-11-10] MEDS: hydrALAZINE 20 MG/ML Vial 10 MG IV (22:56)
[2022-11-10] MEDS: MELATONIN 3 MG TABLET PO (22:57)
[2022-11-11] MEDS: Potassium Chloride 10mEq/100mL 10 MEQ/100 ML IV.SOLN. 100 MEQ IV BOLUS (00:34)
[2022-11-11 02:33] VITALS: BP 134/74; PULSE 81; RESP 16; TEMP 36.4; O2SAT 96
[2022-11-11] MEDS: Lactated Ringers 1,000 ML 100 ML IV (02:47)
[2022-11-11 06:00] VITALS: BMI 26.6
[2022-11-11 06:17] VITALS: BP 134/75; PULSE 76; RESP 16; TEMP 36.7; O2SAT 96
--- NOTE | 2022-11-11 06:39 | PCM.PN.SRG ---
Subjective Subjective Patient without particular complaint. No significant pain issues. No flatus or stool. Objective Data Objective Data Vital Signs: Vital Signs Temp Pulse Resp BP Pulse Ox O2 Del Method O2 Flow Rate 98.1 F 76 16 134/75 H 96 Room Air 2 11/11/22 06:17 11/11/22 06:17 11/11/22 06:17 11/11/22 06:17 11/11/22 06:17 11/11/22 06:17 11/10/22 22:29 Oxygen Flow Rate (L/min) 2 Oxygen Delivery Method Room Air Weight: 175 lb 8 oz Body Mass Index (BMI) 26.6 Intake & Output: Intake and Output for Last 24 Hours 11/09/22 11/10/22 11/11/22 23:59 23:59 23:59 Intake Total 3693.0 / 3828.0 2811.67 / 2811.67 1420 / 1420 Output Total 1350 / 1450 250 / 250 300 / 300 Balance 2343.0 / 2378.0 2561.67 / 2561.67 1120 / 1120 Lab / Micro Data 11/10/22 05:48 11/10/22 05:48 Labs: Laboratory Results - last 24 hr 11/10/22 05:48: Platelet Estimate MOD DEC, Sodium 143, Potassium 3.2 L, Chloride 114 H, Carbon Dioxide 25.0, Anion Gap 4 L, BUN 11, Creatinine 0.74, Estim Creat Clear Calc 67.45, Est GFR (MDRD) Af Amer 135, Est GFR (MDRD) Non-Af 112, BUN/Creatinine Ratio 14.9, Glucose 119 H, Calcium 8.1 L, Magnesium 2.3 Physical Exam Const oriented x3 Resp normal respiratory effort GI GI Narrative: Distended, tympanitic, dressings clean and dry Assessment & Plan Assessment/Plan (1) Small bowel obstruction: PLAN: NG tube approximately 250 cc out. No flatus or stool. Abdomen remains distended. Have encouraged him to try to avoid all narcotics. I have vigorously encouraged him to mobilize and ambulate. We will reassess later today. We will leave the NG tube for the moment. Jeffery Gutierrez M.D., F.A.C.S.
--- NOTE | 2022-11-11 07:31 | PCM.PN.HOSP ---
Reason for Visit Reason for Visit: Diagnoses Unspecified intestinal obstruction, unspecified as to partial versus complete obstruction (11/08/22) Subjective Subjective +Flatus. Objective Data Objective Data Vital Signs: Vital Signs Temp Pulse Resp BP Pulse Ox O2 Del Method O2 Flow Rate 36.7 C 76 16 134/75 H 96 Room Air 2 11/11/22 06:17 11/11/22 06:17 11/11/22 06:17 11/11/22 06:17 11/11/22 06:17 11/11/22 06:17 11/10/22 22:29 Oxygen Flow Rate (L/min) 2 Oxygen Delivery Method Room Air Weight: 79.605 kg Body Mass Index (BMI) 26.6 Intake & Output: Intake and Output for Last 24 Hours 11/09/22 11/10/22 11/11/22 23:59 23:59 23:59 Intake Total 3693.0 / 3828.0 2811.67 / 2811.67 1420 / 1420 Output Total 1350 / 1450 250 / 250 300 / 300 Balance 2343.0 / 2378.0 2561.67 / 2561.67 1120 / 1120 Lab / Micro Data 11/10/22 05:48 11/10/22 05:48 Labs: Laboratory Results - last 24 hr 11/10/22 05:48: Magnesium 2.3 Physical Exam Const Constitutional Narrative: up ambulating in hallways. non-toxic. Resp normal respiratory effort, no retractions, no use of accessory muscles and clear to auscultation bilaterally Cardio regular rate, regular rhythm, S1 normal heart sound and S2 normal heart sound GI normal to inspection, nondistended, normoactive bowel sounds and soft to palpation GI Narrative: hyperactive BS. distented. Extremity normal to inspection Assessment & Plan Assessment/Plan (1) Small bowel obstruction: PLAN: Ileus v partial Small bowel obstruction SBFT showed contrast in colon: ileus v partial SBO General surgery following. Advanced to CLD by GS Laparotomy on 11/11 w normal appearing small bowel. PLAN: Plan Chronic conditions: GERD? On PPI did continue Previous history of small bowel obstruction? Suspected to be secondary to bands patient has known previous history of intra-abdominal surgery History of ITP DVT prophylaxis? Bilateral SCDs Charges/Coding Visit Charges Inpatient E&M: 32759 Subs Hosp L2
[2022-11-11 08:00] VITALS: BP 130/77; BP 147/75; PULSE 70; PULSE 75; RESP 18; TEMP 36.9; TEMP 37.1; O2SAT 95; O2SAT 96
[2022-11-11] MEDS: Lactated Ringers 1,000 ML 75 ML IV ×2 (12:30→23:11)
--- NOTE | 2022-11-11 13:41 | CHAPLAIN ---
Type of Pastoral Visit _x__ Initial Visit ___ Follow-up Visit ___ On-call Visit ___ General Patient Visit ___ Spiritual Assessment ___ Family Conference ___ Bereavement ___ Rapid Response ___ Code Blue ___ Other (describe below) Pastoral Care Referral From _x__ Patient ___ Family ___ Nurse ___ Physician ___ Floor Refinisher ___ Stator Tester ___ Other (describe below) Sacrament/Intervention _x__ Active listening ___ Anointing ___ Hoahaoism ___ Bereavement ___ Communion _x__ Donya exploration ___ ___ Life review _x__ Prayer ___ Reconciliation ___ Sacrament of Sick _x__ Supportive presence ___ Wedding ___ Other (describe below) Pastoral Comments patient is welcoming and pleasant; pt gives details of his health; pt didn't get the result he wanted in surgery but is still offering optimism as he talks; pt goal is to have blockage resolve; pt has supportive family; pt has a donya in God and strong connection to a temple; prayer requested
[2022-11-11 14:00] VITALS: BP 162/88; PULSE 80; RESP 18; TEMP 37; O2SAT 95
[2022-11-11] MEDS: KCL 20MEQ in 0.45%NS 20 MEQ/1,000 ML IV.SOLN. 125 MEQ IV (15:23)
[2022-11-11 20:57] VITALS: BP 159/89; PULSE 80; RESP 18; TEMP 36.8; O2SAT 96
[2022-11-12 04:00] VITALS: BP 157/95; PULSE 82; RESP 18; TEMP 36.8; O2SAT 97
[2022-11-12 06:16] LABS: Absolute Lymphocyte Count 1.14 X10^3/uL (0.83-4.51); Absolute Neutrophil Count 4.9 X10^3/uL (2.0-7.7); Basophil# 0.05 X10^3/uL; Basophil% 0.7 % (0-1); Eosinophil# 0.25 X10^3/uL; Eosinophils% 3.6 % (0-5); Hematocrit 40.6 % (40-54); Hemoglobin 13.9 g/dL (13.0-16.5); Lymphocyte # 1.14 X10^3/ul (0.83-4.51); Lymphocyte % 16.3 % (19-41); Mean Corp Hgb Conc 34.2 g/dL (32-36); Mean Corpuscular Hgb 32.4 pg (27.0-32.0); Mean Corpuscular Volume 94.6 fL (80-94); Monocyte# 0.66 X10^3/uL; Monocyte% 9.5 % (0-10); NRBC Flagged by Analyzer 0 % (0-5); Neutrophil # 4.85 X10^3/uL (2.7-7.7); Neutrophil % 69.5 % (47-70); Platelet Count 101 K/mm3 (150-450); RBC Distribution Width CV 12.8 % (11.6-14.6); RBC Distribution Width SD 44.4 fl (35.1-43.9); Red Blood Count 4.29 M/mm3 (4.6-6.2)
[2022-11-12 06:36] LABS: Anion Gap 6 (5-15); BUN 10 mg/dL (7-18); BUN/Creat Ratio 16.2 RATIO (10-20); Calcium,Total 8.2 mg/dL (8.5-10.1); Chloride 107 mmol/L (98-107); Creatinine, Serum 0.62 mg/dL (0.70-1.30); EST Glomerular Filtration Rate 137 mL/min (>60); Est Glom Filt Rate - Afr Amer 166 mL/min (>60); Estimated Creatinine Clearance 67.45 ml/min; Glucose 96 mg/dL (74-106); Potassium 3.6 mmol/L (3.5-5.1); Sodium Level 138 mmol/L (136-145)
--- NOTE | 2022-11-12 08:14 | PN.HOSP_ITS ---
Reason for Visit Reason for Visit: Diagnoses Unspecified intestinal obstruction, unspecified as to partial versus complete o bstruction (11/08/22) Subjective Subjective NGT removed. Tolerated breakfast. Objective Data Objective Data Vital Signs: Vital Signs Temp Pulse Resp BP Pulse Ox O2 Del Method O2 Flow Rate 36.8 C 82 18 157/95 H 97 Room Air 2 11/12/22 04:00 11/12/22 04:00 11/12/22 04:00 11/12/22 04:00 11/12/22 04:00 11/12/22 04:00 11/10/22 22:29 Oxygen Flow Rate (L/min) 2 Oxygen Delivery Method Room Air Weight: 79.6 kg Body Mass Index (BMI) 26.6 Intake & Output: Intake and Output for Last 24 Hours 11/10/22 11/11/22 11/12/22 23:59 23:59 23:59 Intake Total 2811.67 / 2811.67 4513.75 / 4513.75 Output Total 250 / 250 300 / 300 Balance 2561.67 / 2561.67 4213.75 / 4213.75 Lab / Micro Data 11/12/22 06:07 11/12/22 06:07 Labs: Laboratory Results - last 24 hr 11/12/22 06:07: WBC 7.0, RBC 4.29 L, Hgb 13.9, Hct 40.6, MCV 94.6 H, MCH 32.4 H, MCHC 34.2, RDW Std Deviation 44.4 H, RDW Coeff of Yoel 12.8, Plt Count 101 L, MPV 10.0, Immature Gran % (Auto) 0.400, Neut % (Auto) 69.5, Lymph % (Auto) 16.3 L, [place] % (Auto) 9.5, Eos % (Auto) 3.6, Baso % (Auto) 0.7, Absolute Neuts (auto) 4.9, Absolute Lymphs (auto) 1.14, Nucleated RBC % 0, Sodium 138, Potassium 3.6, Chloride 107, Carbon Dioxide 25.0, Anion Gap 6, BUN 10, Creatinine 0.62 L, Estim Creat Clear Calc 67.45, Est GFR (MDRD) Af Amer 166, Est GFR (MDRD) Non-Af 137, BUN/Creatinine Ratio 16.2, Glucose 96, Calcium 8.2 L Physical Exam Const alert and no apparent distress HEENT head/scalp atraumatic and moist oral mucous membranes Resp normal respiratory effort and no retractions Cardio regular rate, regular rhythm, S1 normal heart sound and S2 normal heart sound GI normal to inspection, nondistended, normoactive bowel sounds, soft to palpation and non-tender Extremity normal to inspection Assessment & Plan Assessment/Plan (1) Small bowel obstruction: PLAN: Ileus v partial Small bowel obstruction SBFT showed contrast in colon: ileus v partial SBO General surgery following. Laparotomy on 11/11 w normal appearing small bowel. No adhesions. Diet advanced to transitional, if tolerates, general surgery feels pt can go home. DW Dr. Markham, no clear etiology, though does not appear to be a SBO. May have been ileus or due to due to excess fiber. PLAN: Plan Chronic conditions: * GERD? On PPI did continue * History of ITP DVT prophylaxis? Bilateral SCDs Charges/Coding Visit Charges Inpatient E&M: 61396 Subs Hosp L2
[2022-11-12 08:30] VITALS: BP 164/83; PULSE 75; RESP 16; TEMP 36.6; O2SAT 97
--- NOTE | 2022-11-12 09:19 | PCM.PN.SRG ---
Subjective Subjective Patient tolerated full liquids having flatus, abdominal pain is tolerable with NSAIDs/Tylenol Objective Data Objective Data Vital Signs: Vital Signs Temp Pulse Resp BP Pulse Ox O2 Del Method O2 Flow Rate 98 F 75 16 164/83 H 97 Room Air 2 11/12/22 08:30 11/12/22 08:30 11/12/22 08:30 11/12/22 08:30 11/12/22 08:30 11/12/22 08:30 11/10/22 22:29 Oxygen Flow Rate (L/min) 2 Oxygen Delivery Method Room Air Weight: 175 lb 7.807 oz Body Mass Index (BMI) 26.6 Intake & Output: Intake and Output for Last 24 Hours 11/10/22 11/11/22 11/12/22 23:59 23:59 23:59 Intake Total 2811.67 / 2811.67 4513.75 / 4513.75 Output Total 250 / 250 300 / 300 Balance 2561.67 / 2561.67 4213.75 / 4213.75 Lab / Micro Data 11/12/22 06:07 11/12/22 06:07 Labs: Laboratory Results - last 24 hr 11/12/22 06:07: WBC 7.0, RBC 4.29 L, Hgb 13.9, Hct 40.6, MCV 94.6 H, MCH 32.4 H, MCHC 34.2, RDW Std Deviation 44.4 H, RDW Coeff of Yoel 12.8, Plt Count 101 L, MPV 10.0, Immature Gran % (Auto) 0.400, Neut % (Auto) 69.5, Lymph % (Auto) 16.3 L, [place] % (Auto) 9.5, Eos % (Auto) 3.6, Baso % (Auto) 0.7, Absolute Neuts (auto) 4.9, Absolute Lymphs (auto) 1.14, Nucleated RBC % 0, Sodium 138, Potassium 3.6, Chloride 107, Carbon Dioxide 25.0, Anion Gap 6, BUN 10, Creatinine 0.62 L, Estim Creat Clear Calc 67.45, Est GFR (MDRD) Af Amer 166, Est GFR (MDRD) Non-Af 137, BUN/Creatinine Ratio 16.2, Glucose 96, Calcium 8.2 L Physical Exam Resp normal respiratory effort Cardio regular rate GI GI Narrative: Abdomen: Soft, nondistended, tender near incision's dressed clean dry and intact, no peritoneal signs Assessment & Plan Assessment/Plan (1) Small bowel obstruction: PLAN: Plan Status post diagnostic laparoscopy, converted to laparotomy, findings of normal small bowel no obvious cause of obstruction seen. Partial bowel obstruction versus ileus Patient tolerating full liquids we will advance to transitional diet if he does tolerate okay to DC home. Patient will follow-up with me in about 2 weeks. Olga Markham M.D. Pager: [phone] [facility] [address] [place] [address], [facility], [address] [place] [address] Office: [phone]
--- NOTE | 2022-11-12 09:20 | DCINST_ITS ---
Discharge Instructions Diet Discharge Diet: - (transitional--low fiber/soft) Activity Discharge Activity: May Not Drive (while taking narcotic pain medications.) May shower in (days): 1 Lifting Restrictions: no lifting >20 lbs x 2 wks, no strenuous exercise for 4 wks Dressing / Incision Call your doctor if your incision/area has: Continuous Slow Oozing, Sudden Increased Bleeding, Increased Pain/ Swelling, Increased Redness, Foul Smelling Discharge and Swelling at the incision site Call your doctor if you observe: Fever of 101 or Higher Remove Dressing in: 2 days Cleanse incision/area with: Soap & Water Additional Dressing/Incision Instructions:: Steri-Strips will fall off in 7 to 10 days, if they do not fall off okay to remove after 10 days. Follow Up Care Please Follow Up With: Olga Markham MD When: Call the office for a follow-up appointment 2 weeks; after 5 PM and on the weekends call [phone] with any concerns. Test Results: Test results from this visit will be discussed in further detail at your follow- up appointment, if applicable. Discharge Plan Admission Admit Date/Time: 11/08/22 14:56 Attending Provider: Damian Padgett Primary Care Provider: Korin Velázquez Consulting Providers: Olga Markham; Jakob Hayden Discharge Orders/Prescriptions Prescriptions: No Action zinc gluconate 30 mg tablet 30 mg PO DAILY omeprazole 20 MG capsule 20 mg PO DAILY multivitamin [Multiple Vitamins] 1 EACH tablet 1 tab PO DAILY iron, carbonyl [Feosol] 45 MG capsule 325 mg PO WE ascorbic acid (vitamin C) [Vitamin C] 500 MG tablet 500 mg PO DAILY cholecalciferol (vitamin D3) [Vitamin D3] 2,000 UNIT capsule 2,000 unit PO DAILY Referrals / Follow Up: Korin Velázquez DO [Primary Care Provider] -
[2022-11-12 11:43] VITALS: BP 154/77; PULSE 84; RESP 16; TEMP 36.9; O2SAT 96
--- NOTE | 2022-11-12 14:39 | DS.PCM_ITS ---
Providers Date of Admission: 11/08/22 Primary Care Physician: Dr. Korin Velázquez, DO Consultations 11/08/22 15:43 Consult: General Surgery Routine Consulting Provider: Olga Markham Reason for Consult: SBO EMERGENT Consult: No MD Notified: Yes Date Notified: 11/08/22 Time Notified: 15:01 Method of Notification: ED Physician Initiated Reason For Visit: SBO Diagnosis Discharge Diagnosis (1) Small bowel obstruction: Status: Acute Code(s): K56.609 - Unspecified intestinal obstruction, unspecified as to partial versus complete obstruction Plan: Ileus v partial Small bowel obstruction SBFT showed contrast in colon: ileus v partial SBO General surgery following. Laparotomy on 11/11 w normal appearing small bowel. No adhesions. Diet advanced to transitional, if tolerates, general surgery feels pt can go home. DW Dr. Markham, no clear etiology, though does not appear to be a SBO. May have been ileus or due to due to excess fiber. Plan Chronic conditions: * GERD? On PPI did continue * History of ITP DVT prophylaxis? Bilateral SCDs Medications at Discharge Home Medications omeprazole 20 mg capsule,delayed release 20 mg PO DAILY ACID REFLUX 02/05/14 iron, carbonyl 45 mg tablet (Feosol) 325 mg PO WE ANEMIA 07/07/16 multivitamin (Multiple Vitamins tablet) 1 tab PO DAILY HEALTH MAINTENANCE 07/07/16 ascorbic acid (vitamin C) 500 mg tablet (Vitamin C) 500 mg PO DAILY SUPPLEMENT 08/14/16 cholecalciferol (vitamin D3) 50 mcg (2,000 unit) capsule (Vitamin D3) 2,000 unit PO DAILY SUPPLEMENT 08/14/16 zinc gluconate 30 mg tablet 30 mg PO DAILY SUPPLEMENT 11/11/21 acetaminophen 500 mg capsule 1,000 mg (2 x 500 mg) PO Q8H PRN PRN fever or pain #30 caps 11/12/22 ondansetron 8 mg disintegrating tablet 8 mg PO Q8H PRN nausea and vomiting 5 days #20 tabs 11/12/22 Hospital Course Operations - (laparotomy) Weight / BMI Weight Weight: 79.6 kg Body Mass Index (BMI) 26.6 ABG / Lab / Microbiology Data 11/12/22 06:07 11/12/22 06:07 Laboratory: Laboratory Results - last 24 hr 11/12/22 06:07: WBC 7.0, RBC 4.29 L, Hgb 13.9, Hct 40.6, MCV 94.6 H, MCH 32.4 H, MCHC 34.2, RDW Std Deviation 44.4 H, RDW Coeff of Yoel 12.8, Plt Count 101 L, MPV 10.0, Immature Gran % (Auto) 0.400, Neut % (Auto) 69.5, Lymph % (Auto) 16.3 L, [place] % (Auto) 9.5, Eos % (Auto) 3.6, Baso % (Auto) 0.7, Absolute Neuts (auto) 4.9, Absolute Lymphs (auto) 1.14, Nucleated RBC % 0, Sodium 138, Potassium 3.6, Chloride 107, Carbon Dioxide 25.0, Anion Gap 6, BUN 10, Creatinine 0.62 L, Estim Creat Clear Calc 67.45, Est GFR (MDRD) Af Amer 166, Est GFR (MDRD) Non-Af 137, BUN/Creatinine Ratio 16.2, Glucose 96, Calcium 8.2 L D/C Instructions Discharge Diet: - (transitional--low fiber/soft) May shower in (days): 1 Call your doctor if your incision/area has: Continuous Slow Oozing, Sudden Increased Bleeding, Increased Pain/ Swelling, Increased Redness, Foul Smelling Discharge and Swelling at the incision site Call your doctor if you observe: Fever of 101 or Higher Cleanse incision/area with: Soap & Water Additional Dressing/Incision Instructions: Steri-Strips will fall off in 7 to 10 days, if they do not fall off okay to remove after 10 days. Please Follow Up With: Olga Markham MD When: Call the office for a follow-up appointment 2 weeks; after 5 PM and on the weekends call [phone] with any concerns. Meaningful Use Info Meaningful Use Diagnoses (Choose all that apply): None applicable Discharge Plan Admission Admit Date/Time: 11/08/22 14:56 Primary Reason for Your Visit: Ileus Attending Provider: Damian Padgett Primary Care Provider: Korin Velázquez Consulting Providers: Olga Markham; Jakob Hayden Discharge Orders/Prescriptions Prescriptions: New acetaminophen 500 mg capsule 1,000 mg PO Q8H PRN PRN (Reason: fever or pain) Qty: 30 0RF ondansetron 8 mg tablet,disintegrating 8 mg PO Q8H PRN (Reason: nausea and vomiting) 5 Days Qty: 20 0RF Continued zinc gluconate 30 mg tablet 30 mg PO DAILY omeprazole 20 MG capsule 20 mg PO DAILY multivitamin [Multiple Vitamins] 1 EACH tablet 1 tab PO DAILY iron, carbonyl [Feosol] 45 MG capsule 325 mg PO WE ascorbic acid (vitamin C) [Vitamin C] 500 MG tablet 500 mg PO DAILY cholecalciferol (vitamin D3) [Vitamin D3] 2,000 UNIT capsule 2,000 unit PO DAILY Referrals / Follow Up: Korin Velázquez DO [Primary Care Provider] - Within 2 Weeks Olga Markham MD [Med Staff - Active Staff] - Within 2 Weeks Disposition Disposition (needs filled in before D/C Order can be placed): Home, Self Care Charges/Coding Visit Charges Inpatient E&M: 25096 Disch Hosp
--- NOTE | 2022-11-12 15:11 | PHA.DC.MR.R ---
Pharmacy [place] Med Reconciliation Pharmacy Service has performed discharge medication reconciliation for this patient. Medication education materials prepared, patient already gone when counseling was attempted. The patient's discharge medication list was reviewed for discrepancies and discrepancies were resolved. Medications at Discharge Home Medications omeprazole 20 mg capsule,delayed release 20 mg PO DAILY ACID REFLUX 02/05/14 iron, carbonyl 45 mg tablet (Feosol) 325 mg PO WE ANEMIA 07/07/16 multivitamin (Multiple Vitamins tablet) 1 tab PO DAILY HEALTH MAINTENANCE 07/07/16 ascorbic acid (vitamin C) 500 mg tablet (Vitamin C) 500 mg PO DAILY SUPPLEMENT 08/14/16 cholecalciferol (vitamin D3) 50 mcg (2,000 unit) capsule (Vitamin D3) 2,000 unit PO DAILY SUPPLEMENT 08/14/16 zinc gluconate 30 mg tablet 30 mg PO DAILY SUPPLEMENT 11/11/21 acetaminophen 500 mg capsule 1,000 mg (2 x 500 mg) PO Q8H PRN PRN fever or pain #30 caps 11/12/22 ondansetron 8 mg disintegrating tablet 8 mg PO Q8H PRN nausea and vomiting 5 days #20 tabs 11/12/22
== END 2022-11-12 15:10 | disposition home or self-care (01) | DRG 357 ==
LOC: ED 14:31 → MS3 15:13
PROVIDERS: Surgery; Admitting Provider Internal Medicine; Emergency Provider Emergency Medicine; PCP Internal Medicine
PROC: 0DJD0ZZ Inspection of Lower Intestinal Tract, Open Approach (ICD-10-PCS; CPT 49320; principal; 2022-11-10 15:15)
DX: K56.7 Ileus, unspecified (principal); D69.3 Immune thrombocytopenic purpura; K21.9 Gastro-esophageal reflux disease without esophagitis; R63.8 Other symptoms and signs concerning food and fluid intake; Z53.31 Laparoscopic surgical procedure converted to open procedure; Z79.899 Other long term (current) drug therapy
CPT/HCPCS: 36415; 74018; 74019; 74177; 74250; 80048; 80076; 81001; 83690; 83735; 84100; 85025; 94668; 99285; J7030; J7120; Q9967; A4216; J2405

== ENCOUNTER → 2022-11-25 | Outpatient (CLI) | payer MEDICARE, OTHER, SELFPAY ==
[2022-11-25 17:52] LABS: Basophil# 0.07 X10^3/uL; Basophil% 1.1 % (0-1); Eosinophil# 0.26 X10^3/uL; Eosinophils% 3.9 % (0-5); Hematocrit 41.7 % (40-54); Hemoglobin 13.9 g/dL (13.0-16.5); Lymphocyte % 25.7 % (19-41); Mean Corp Hgb Conc 33.3 g/dL (32-36); Mean Corpuscular Hgb 32.4 pg (27.0-32.0); Mean Corpuscular Volume 97.2 fL (80-94); Mean Platelet Vol. 10.2 fl (6.2-12.0); Monocyte% 9.1 % (0-10); NRBC Flagged by Analyzer 0 % (0-5); Neutrophil # 3.97 X10^3/uL (2.7-7.7); Platelet Count 133 K/mm3 (150-450); RBC Distribution Width CV 12.8 % (11.6-14.6); RBC Distribution Width SD 45.5 fl (35.1-43.9); Red Blood Count 4.29 M/mm3 (4.6-6.2); White Blood Count 6.6 K/mm3 (4.4-11.0)
== END | disposition home or self-care (01) ==
LOC: MTLAB 16:34
PROVIDERS: PCP Internal Medicine; Referring Provider Nurse Practitioner Family; Visit Provider Nurse Practitioner Family
DX: K56.609 Unspecified intestinal obstruction, unspecified as to partial versus complete obstruction (principal)
CPT/HCPCS: 36415; 85025

== ENCOUNTER → 2022-12-17 | Outpatient (CLI) | payer MEDICARE, OTHER, SELFPAY ==
--- NOTE | 2022-12-17 07:45 | RAD_ITS ---
PROCEDURE: SMALL BOWEL SERIES DATE OF EXAMINATION: December 17, 2022.. INDICATION: Male, 72 years old. History of 2 prior small bowel obstructions. PHYSICIAN: Edison Trevizo M.D. TECHNIQUE: Radiographic and fluoroscopic images were taken of the small intestine following the ingestion of barium. COMPARISON: None. FINDINGS: A preliminary supine KUB was obtained. There is an unremarkable bowel gas pattern. Fecal material is present throughout the colon. Degenerative changes in the lumbar spine. Status post bilateral hip replacement.. The patient orally ingested approximately 12 ounces of thin barium Normal visualized fundus, body, and antrum of the stomach. Normal duodenal bulb, C-loop, and proximal jejunum. Normal visualized mucosal folds of the jejunum and ileum. There are no demonstrated dilatations, strictures, or masses of the small intestine. There is no mass displacement of the loops of small intestine. There is a normal motor pattern with barium reaching the colon within approximately 50 minutes. Spot films under fluoroscopic observation demonstrated a normal terminal ileum and ileocecal valve. RAD/Small Bowel Series Only IMPRESSION: Normal small bowel series. Electronically Signed: Edison Trevizo MD at 9:48 EDT ,
== END | disposition home or self-care (01) ==
LOC: RAD 07:43
PROVIDERS: PCP Internal Medicine; Referring Provider Internal Medicine Gastroenterology; Visit Provider Internal Medicine Gastroenterology
DX: R10.9 Unspecified abdominal pain (principal); K56.600 Partial intestinal obstruction, unspecified as to cause
CPT/HCPCS: 74250

== ENCOUNTER → 2023-10-12 | Outpatient (CLI) | payer MEDICARE, OTHER, SELFPAY ==
[2023-10-12 09:20] LABS: Erythrocyte Sedimentation Rate 5 mm/hr (0-20)
[2023-10-12 09:29] LABS: CRP 3.15 mg/L (0.0-3.0); LDH 209 U/L (87-241)
[2023-10-16 03:06] LABS: Beef <0.10 kU/L (Class 0); Chocolate <0.10 kU/L (Class 0); Codfish <0.10 kU/L (Class 0); Egg, Whole <0.10 kU/L (Class 0); Milk (Cow) 0.38 kU/L (Class I); Mussels <0.10 kU/L (Class 0); Peanut <0.10 kU/L (Class 0); Pork <0.10 kU/L (Class 0); Salmon <0.10 kU/L (Class 0); Shrimp <0.10 kU/L (Class 0); Soybean 0.14 kU/L (Class 0/I); Tuna <0.10 kU/L (Class 0); Wheat <0.10 kU/L (Class 0)
[2023-10-16 10:07] LABS: ACCA 5 units (0-90); ALCA 21 units (0-60); AMCA 44 units (0-100); Alpha-1-Globulins 0.2 g/dL (0.0-0.4); Alpha-2-Globulins 0.6 g/dL (0.4-1.0); Angiotensin Convert Enzyme 43 U/L (14-82); Cytoplasmic Ab (C-ANCA) <1:20 titer (Neg:<1:20); Dopamine, Pl <30 pg/mL (0-48); Endomysial Antibody IgA Negative (Negative); Epinephrine, Pl 47 pg/mL (0-62); Gastrin, Serum 85 pg/mL (0-115); Immunoglobulin A 131 mg/dL (61-437); Immunoglobulin E 139 IU/mL (6-495); Immunoglobulin G 1067 mg/dL (603-1613); Immunoglobulin M 54 mg/dL (20-172); Norepinephrine, Pl 401 pg/mL (0-874); PROEL- TOTAL PROTEIN 6.6 g/dL (6.0-8.5); Perinuclear Ab (P-ANCA) <1:20 titer (Neg:<1:20); gASCA 43 units (0-50); t-Transglutaminase IgA <2 U/mL (0-3)
== END | disposition home or self-care (01) ==
LOC: LAB 08:16
PROVIDERS: PCP Internal Medicine; Referring Provider Internal Medicine Gastroenterology; Visit Provider Internal Medicine Gastroenterology
DX: R10.9 Unspecified abdominal pain (principal); K56.609 Unspecified intestinal obstruction, unspecified as to partial versus complete obstruction
CPT/HCPCS: 36415; 82164; 82384; 82533; 82784; 82785; 82941; 83516; 83615; 84165; 85652; 86003; 86005; 86036; 86140; 86255; 86256; 86334; 86671

== ENCOUNTER → 2023-10-21 | Outpatient (CLI) | payer MEDICARE, OTHER, SELFPAY ==
--- NOTE | 2023-10-21 09:13 | RAD_ITS ---
STUDY: X-RAY - ABDOMEN/PELVIS REASON FOR EXAM: Male, 72 years old. Agile capsule TECHNIQUE: Single AP view of the abdomen / pelvis. COMPARISON: None. FINDINGS: There is an unremarkable bowel gas pattern. The visualized liver, spleen and kidneys are grossly normal in size and morphology. Normal soft tissue structures. Mild levoscoliosis lumbar spine with degenerative disc disease. Status post bilateral hip arthroplasty. RAD/Abdomen Single View IMPRESSION: Normal x-ray examination of the abdomen and pelvis. Electronically Signed: Gerardo Spivey MD at 9:11 EDT ,
== END | disposition home or self-care (01) ==
LOC: RAD 09:11
PROVIDERS: PCP Internal Medicine; Referring Provider Internal Medicine Gastroenterology; Visit Provider Internal Medicine Gastroenterology
DX: R10.9 Unspecified abdominal pain (principal)
CPT/HCPCS: 74018

== ENCOUNTER → 2023-10-23 | Outpatient (CLI) | payer MEDICARE, OTHER, SELFPAY ==
--- NOTE | 2023-10-23 12:18 | NM_ITS ---
CLINICAL: 72-year-old male with history of abdominal bloating. SEMI-SOLID PHASE 99m Tc SULFUR COLLOID GASTRIC EMPTYING STUDY COMPARISON: None available FINDINGS: The patient was administered 1.2 mCi of 99m Tc sulfur colloid mixed with oatmeal and consumed per os. Image acquisitions in the anterior-posterior projections were obtained for 60 minutes. There is prompt visualization of the stomach. There is no gastroesophageal reflux identified. The T ? raw data emptying was calculated to be 25.41 minutes, (Normal: 12-56 minutes). NM/Gastric Emptying Study IMPRESSION: 1. NORMAL 99m Tc sulfur colloid semi-solid phase (oatmeal) gastric emptying imaging examination. A. There is normal and preserved semi-solid phase gastric emptying compared to normal controls . (Randy et al, J Nucl Med Tech 38: 186, 2010). Electronically Signed: Gerardo Castillo DO at 14:31 EDT ,
== END | disposition home or self-care (01) ==
LOC: NM 12:17
PROVIDERS: PCP Internal Medicine; Referring Provider Internal Medicine Gastroenterology; Visit Provider Internal Medicine Gastroenterology
DX: R10.9 Unspecified abdominal pain (principal); K56.609 Unspecified intestinal obstruction, unspecified as to partial versus complete obstruction
CPT/HCPCS: 78264; A9541

== ENCOUNTER → 2023-11-05 | Outpatient (CLI) | payer MEDICARE, OTHER, SELFPAY ==
--- NOTE | 2023-11-05 11:26 | MRI_ITS ---
INDICATION: FOUR BOWEL BLOCKAGES IN TWO YEARS, COMPARE TO CT EXAMINATION: MRI - MR Enterography Abdomen/Pelvis W/ Contrast TECHNIQUE: Multiplanar and multisequence MR images of the abdomen were obtained. IV Contrast Dosage and Agent: Without IV contrast COMPARISON: CT scan of the abdomen and pelvis of 11/08/2022 FINDINGS: LOWER CHEST: Unremarkable. LIVER: Homogeneous. No focal lesion is seen in the visualized portions of the liver GALLBLADDER AND BILIARY TREE: No definite gallstones. The gallbladder is better evaluated by ultrasound. PANCREAS: No focal cystic or solid mass. SPLEEN: Normal size without focal cystic or solid mass. ADRENAL GLANDS: No nodules. KIDNEYS AND URETERS: Small bilateral simple cysts for which no further follow-up exam is needed. No evidence of hydronephrosis. PERITONEUM: No evidence of ascites. BOWEL: Normal in caliber, mucosal pattern and distribution of the small bowel loops without evidence of small bowel obstruction. The terminal ileum appears to be unremarkable. Diverticulosis of the colon. No evidence of acute diverticulitis. The appendix is not definitely identified. LYMPH NODES: No enlarged mesenteric or retroperitoneal lymph nodes. VESSELS: Aorta is non-dilated. ABDOMINAL WALL: No discrete abdominal wall hernia. MRI/Enterography Abd/Pel IMPRESSION: 1. Normal small bowel loops in caliber, mucosal pattern and distribution. No evidence of obstruction. 2. Diverticulosis of the colon without evidence of acute diverticulitis. 3. Simple cyst in the in both kidneys. Electronically Signed: Ramiro Sanabria MD at 11:10 EDT ,
[2023-11-05 12:15] VITALS: BP 157/78; PULSE 60; RESP 16; O2SAT 97; BMI 29.0
[2023-11-05 12:15] LABS: CREATININE FINGERSTICK < 1.0 mg/dL (0.70-1.30); EGFR FINGERSTICK > 60.0000 mL/min (>60)
[2023-11-05] MEDS: Glucagon 1 MG/ML Syringe IV (13:29)
[2023-11-05] MEDS: 0.9% Saline Lock 10 ML Syringe IV (13:29)
[2023-11-05 13:49] VITALS: BP 138/62; PULSE 73; RESP 16; O2SAT 96
== END | disposition home or self-care (01) ==
LOC: MRI 11:22
PROVIDERS: PCP Internal Medicine; Referring Provider Internal Medicine Gastroenterology; Visit Provider Internal Medicine Gastroenterology
DX: Z01.812 Encounter for preprocedural laboratory examination (principal); K56.609 Unspecified intestinal obstruction, unspecified as to partial versus complete obstruction; R10.9 Unspecified abdominal pain
CPT/HCPCS: 74183; 96374; A9575; A4216; J1610

== ENCOUNTER → 2024-02-20 | Outpatient (CLI) | payer MEDICARE, OTHER, SELFPAY ==
[2024-02-20 07:46] LABS: Bacteria 0 SEEN /hpf (None Seen); Mucous, Urine 0 SEEN /hpf (<or=2+); Red Blood Cells-Urine 0 SEEN /hpf (0-5); Squamous Epithelial Cells - UA 0 SEEN /hpf (0-5); White Blood Cells 0 SEEN /hpf (0-5)
[2024-02-20 07:56] LABS: Absolute Neutrophil Count 5.8 X10^3/uL (2.0-7.7); Basophil# 0.05 X10^3/uL; Basophil% 0.6 % (0-1); Eosinophil# 0.22 X10^3/uL; Eosinophils% 2.6 % (0-5); Hematocrit 44.8 % (40-54); Hemoglobin 15.3 g/dL (13.0-16.5); Lymphocyte % 20.1 % (19-41); Mean Corp Hgb Conc 34.2 g/dL (32-36); Mean Corpuscular Hgb 32.1 pg (27.0-32.0); Mean Corpuscular Volume 93.9 fL (80-94); Mean Platelet Vol. 10.1 fl (6.2-12.0); Monocyte# 0.63 X10^3/uL; Monocyte% 7.5 % (0-10); NRBC Flagged by Analyzer 0 % (0-5); Neutrophil # 5.79 X10^3/uL (2.7-7.7); Neutrophil % 68.6 % (47-70); Platelet Count 103 K/mm3 (150-450); RBC Distribution Width CV 12.8 % (11.6-14.6); RBC Distribution Width SD 44.7 fl (35.1-43.9); Red Blood Count 4.77 M/mm3 (4.6-6.2); White Blood Count 8.4 K/mm3 (4.4-11.0)
[2024-02-20 08:23] LABS: ALB/GLOB Ratio 1.2 RATIO (0.9-2.4); AST(SGOT) 17 U/L (15-37); Alanine Aminotransfer ALT/SGPT 25 U/L (16-61); Albumin, Serum 3.8 g/dL (3.2-5.0); Alkaline Phosphatase 104 U/L (45-117); Anion Gap 5 (5-15); BUN 14 mg/dL (7-18); BUN/Creat Ratio 16.3 RATIO (10-20); Calcium,Total 8.6 mg/dL (8.5-10.1); Chloride 109 mmol/L (98-107); Cholesterol 181 mg/dL (200); Creatinine, Serum 0.86 mg/dL (0.70-1.30); EST Glomerular Filtration Rate 93 mL/min (>60); Est Glom Filt Rate - Afr Amer 113 mL/min (>60); Ferritin 146 ng/mL (26-388); Globulin 3.3 g/dL (2.2-4.2); Glucose 98 mg/dL (74-106); High Density Lipoprotein 43 mg/dL; Iron 49 ug/dL (65-175); Iron Binding Capacity,Total 252 ug/dL (250-450); PERCENT IRON SATURATION 19.4 % (15.0-55.0); Potassium 4.2 mmol/L (3.5-5.1); Protein, Total 7.1 g/dL (6.4-8.2); Sodium Level 139 mmol/L (136-145); Triglycerides 65 mg/dL; Very Low Density Lipoprotein 13 mg/dL (5-40)
[2024-02-20 08:37] LABS: Color, Urine Yellow (Yellow); Glucose, Dipstick Normal (Normal); Ketone-Dipstick Negative (Negative); Leukocyte Esterase-Dipstick Negative /ul (Negative); Nitrite-Dipstick Negative (Negative); Occult Blood-Urine Negative /ul (Negative); Protein-Dipstick 15 mg/dl (Negative); Urine Bilirubin Dipstick Negative (Negative); Urine Clarity Clear (Clear); Urine Urobilinogen Normal (Normal)
[2024-02-20 10:08] LABS: Microalbumin,Random Urine 7.6 mg/L (NO RANGE EST.); Microalbumin:Creatinine Ratio 5.9 mg/g CRE (<30 mg/g CRE)
[2024-02-22 08:23] LABS: Vitamin D,25 Hydroxy 57.3 ng/mL
== END | disposition home or self-care (01) ==
LOC: LAB 07:07
PROVIDERS: PCP Internal Medicine; Referring Provider Internal Medicine; Visit Provider Internal Medicine
DX: E55.9 Vitamin D deficiency, unspecified (principal); D69.6 Thrombocytopenia, unspecified; I10 Essential (primary) hypertension; D50.9 Iron deficiency anemia, unspecified
CPT/HCPCS: 36415; 80053; 80061; 81001; 82043; 82306; 82570; 82728; 83540; 83550; 84443; 85025

== ENCOUNTER → 2024-08-29 | Outpatient (CLI) | payer MEDICARE, OTHER, SELFPAY ==
[2024-08-29 08:45] LABS: Absolute Lymphocyte Count 1.62 X10^3/uL (0.83-4.51); Absolute Neutrophil Count 5.3 X10^3/uL (2.0-7.7); Basophil# 0.05 X10^3/uL; Basophil% 0.6 % (0-1); Eosinophil# 0.22 X10^3/uL; Eosinophils% 2.8 % (0-5); Hematocrit 44.3 % (40-54); Hemoglobin 15.4 g/dL (13.0-16.5); Lymphocyte # 1.62 X10^3/ul (0.83-4.51); Lymphocyte % 20.7 % (19-41); Mean Corp Hgb Conc 34.8 g/dL (32-36); Mean Corpuscular Hgb 32.4 pg (27.0-32.0); Mean Corpuscular Volume 93.3 fL (80-94); Mean Platelet Vol. 9.8 fl (6.2-12.0); Monocyte# 0.62 X10^3/uL; Monocyte% 7.9 % (0-10); NRBC Flagged by Analyzer 0 % (0-5); Neutrophil # 5.31 X10^3/uL (2.7-7.7); Neutrophil % 67.7 % (47-70); Platelet Count 100 K/mm3 (150-450); RBC Distribution Width CV 13.1 % (11.6-14.6); RBC Distribution Width SD 44.9 fl (35.1-43.9); Red Blood Count 4.75 M/mm3 (4.6-6.2); White Blood Count 7.8 K/mm3 (4.4-11.0)
[2024-08-29 09:04] LABS: Microalbumin,Random Urine < 12.0 mg/L (NO RANGE EST.); Microalbumin:Creatinine Ratio UNABLE TO CALCULATE mg/g CRE
[2024-08-29 09:29] LABS: ALB/GLOB Ratio 1.5 RATIO (0.9-2.4); AST(SGOT) 22 U/L (<=37); Alanine Aminotransfer ALT/SGPT 20 U/L (<=46); Albumin, Serum 4.3 g/dL (3.4-4.8); Alkaline Phosphatase 91 U/L (40-129); Anion Gap 9 (5-15); BUN 16 mg/dL (4-19); BUN/Creat Ratio 17.6 RATIO (10-20); Calcium,Total 9.1 mg/dL (7.6-11.0); Carbon Dioxide 23.7 mmol/L (21.0-32.0); Chloride 106 mmol/L (98-108); Cholesterol 169 mg/dL (<=200); EST Glomerular Filtration Rate 91 (>60); Ferritin 244 ng/mL (37-417); Globulin 2.8 g/dL (2.2-4.2); Glucose 98 mg/dL (70-99); High Density Lipoprotein 39 mg/dL; Low Density Lipoprotein Calc. 115 mg/dL; Potassium 4.1 mmol/L (3.3-5.1); Sodium Level 139 mmol/L (133-145); Total Bilirubin 0.56 mg/dL (0.00-1.30); Triglycerides 78 mg/dL; Very Low Density Lipoprotein 16 mg/dL (5-40); cholesterol:hdl ratio screen 4.39
[2024-08-29 09:47] LABS: Iron 93 ug/dL (65-175); Iron Binding Capacity,Unsat 119 ug/dL (228-428)
[2024-08-29 10:01] LABS: Iron Binding Capacity,Total 212 ug/dL (250-450); PERCENT IRON SATURATION 43.9 % (9-55)
== END | disposition home or self-care (01) ==
LOC: LAB 07:58
PROVIDERS: PCP Internal Medicine; Referring Provider Internal Medicine; Visit Provider Internal Medicine
DX: D50.9 Iron deficiency anemia, unspecified (principal); I10 Essential (primary) hypertension; Z12.5 Encounter for screening for malignant neoplasm of prostate
CPT/HCPCS: 36415; 80053; 80061; 82043; 82570; 82728; 83540; 83550; 84153; 85025

== ENCOUNTER → 2025-02-28 | Outpatient (CLI) | payer MEDICARE, OTHER, SELFPAY ==
[2025-02-28 17:38] LABS: Hematocrit 39.7 % (40-54); Hemoglobin 13.7 g/dL (13.0-16.5); Immature Granulocytes Count 0.020 X10^3/uL (0.0-0.0); Mean Corp Hgb Conc 34.5 g/dL (32-36); Mean Corpuscular Volume 95.4 fL (80-94); Mean Platelet Vol. 9.9 fl (6.2-12.0); NRBC Flagged by Analyzer 0 % (0-5); Platelet Count 102 K/mm3 (150-450); RBC Distribution Width CV 12.8 % (11.6-14.6); RBC Distribution Width SD 44.9 fl (35.1-43.9); Red Blood Count 4.16 M/mm3 (4.6-6.2); White Blood Count 6.9 K/mm3 (4.4-11.0)
== END | disposition home or self-care (01) ==
LOC: MTLAB 16:00
PROVIDERS: PCP Internal Medicine; Referring Provider Internal Medicine; Visit Provider Internal Medicine
DX: D69.6 Thrombocytopenia, unspecified (principal)
CPT/HCPCS: 36415; 85025